=== PATIENT | male | born 1960 | race Caucasian/White ===

== ENCOUNTER → 2017-07-08 | Outpatient (CLI) | payer BC ==
[~2017-07-08] MED LIST: HYDC25 PO; METO100T44 PO; SIMV20TA2 PO
[2017-07-08 10:38] LABS: ALBUMIN 3.8 gm/dl (3.4-5.0); ALT/SGPT 77 U/L (12-78); BLOOD UREA NITROGEN 19 mg/dl (7-18); CALCIUM 8.5 mg/dl (8.5-10.1); CARBON DIOXIDE 30 mmol/L (21-32); CHOLESTEROL 236 mg/dl (0-200); CREATININE 1.19 mg/dl (0.60-1.40); GLUCOSE 97 mg/dl (70-99); POTASSIUM 3.7 mmol/L (3.5-5.1); SODIUM 138 mmol/L (136-145)
[2017-07-08 10:43] LABS: ALKALINE PHOSPHATASE 78 U/L (45-117); AST/SGOT 43 U/L (15-37); LDL CHOLESTEROL CALCULATED 158 mg/dl; TOTAL PROTEIN 7.4 gm/dl (6.4-8.2)
[2017-07-08 11:55] LABS: HEMOGLOBIN A1C 5.5 % (4.5-5.6)
== END | disposition home or self-care (01) ==
LOC: C.LAB1850 09:29
PROVIDERS: ATTEND Internal Medicine
DX: R73.01 Impaired fasting glucose (principal)

== ENCOUNTER → 2017-10-06 | Outpatient (CLI) | payer BC ==
[2017-10-06 12:44] LABS: ALBUMIN 3.9 gm/dl (3.4-5.0); BLOOD UREA NITROGEN 21 mg/dl (7-18); CALCIUM 8.7 mg/dl (8.5-10.1); CARBON DIOXIDE 32 mmol/L (21-32); CREATININE 1.19 mg/dl (0.60-1.40); GLUCOSE 107 mg/dl (70-99); POTASSIUM 3.4 mmol/L (3.5-5.1); SODIUM 138 mmol/L (136-145)
[2017-10-06 12:48] LABS: ALKALINE PHOSPHATASE 96 U/L (45-117); ALT/SGPT 57 U/L (12-78); AST/SGOT 33 U/L (15-37); CHOLESTEROL 155 mg/dl (0-200); LDL CHOLESTEROL CALCULATED 84 mg/dl; TOTAL PROTEIN 7.2 gm/dl (6.4-8.2)
== END | disposition home or self-care (01) ==
LOC: C.LABPBG 07:52
PROVIDERS: ATTEND Internal Medicine
DX: E78.5 Hyperlipidemia, unspecified (principal)

== ENCOUNTER 2019-09-13 16:32 | Inpatient (IN) ==
[2019-09-13] MEDS ORDERED: PROCHLORPERAZINE 2 ML IV ONE (17:01)
[2019-09-13] MEDS ORDERED: FAMOTIDINE 20MG IV PUSH 20 MG/5 ML SYR IV STA (17:01)
[2019-09-13] MEDS ORDERED: ACETAMINOPHEN 1,000 MG/100 ML VIAL IV STA (17:02)
[2019-09-13] MEDS ORDERED: MoRPHine SULFATE 10 MG/ML CARP/VIAL IV STA ×2 (17:02→20:08)
--- NOTE | 2019-09-13 17:13 | Emergency Department Note ---
History of Present Illness General Chief complaint: Abdominal Pain Stated complaint: ABD PAIN Time Seen by Provider: 09/13/19 16:45 Source: patient Mode of arrival: ambulatory Limitations: no limitations History of Present Illness Provider complaint: abd pain Onset (ago): minute(s) Location: abdomen Radiation: back Severity: severe Pain Consistency: + constant Maximum Pain Intensity: 10 Quality: + burning Relieved By: + none Exacerbated By: + eating Associated symptoms: + nausea/vomiting Treatments prior to arrival: none The patient is a pleasant 59-year-old gentleman with a recent past medical history of attempted biliary decompression with brush cytology with appearance of possible malignancy with atrophy of left hepatic segments who presents emergency department with abdominal pain, nausea and vomiting after initially feeling okay after his procedure ate a turkey wrap and then had nausea vomiting. Patient reports having ERCP after developing painless jaundice found to have biliary obstruction and after brief admission at [facility] was discharged with scheduled ERCP this morning. Denies fever, cough, congestion, diarrhea. Home Medications Home Medications Medication Instructions Recorded Confirmed Type potassium chloride 10 mEq 10 meq PO DAILY #90 tab 06/12/19 09/13/19 Rx tablet,extended release metoprolol succinate 100 mg 100 mg PO DAILY #30 tab 07/22/19 09/13/19 Rx tablet,extended release 24 hr atorvastatin [Lipitor] 40 mg PO DAILY 09/13/19 09/13/19 History glucos sul [id number] 1 cap PO QAM 09/13/19 09/13/19 History [Glucosamine Chondroitin] omega [id number] oil [Fish Oil] 1 cap PO DAILY 09/13/19 09/13/19 History Allergies Allergy/AdvReac Type Severity Reaction Status Date / Time No Known Allergies Allergy Unverified 09/13/19 16:35 Past Med/Surg History Medical History Carpal tunnel syndrome on both sides Dyslipidemia (Chronic) Hip pain (Chronic) Hypertension (Chronic) Impaired fasting glucose (Chronic) Surgical History [place] teeth removed Family History Father Lung cancer Denies family history of Ovarian cancer Prostate cancer Breast cancer Colorectal cancer Social History Preferred Language: Singaporean Communication Ability: Effective Visual Impairment: No Limitations Hearing Ability: Normal Injector Assembler Required: No Beliefs That Will Affect Care: None marital status: Single Current Living Situation: Alone current occupational status: employed 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 A total of ten systems were reviewed and were otherwise negative. Physical Exam Vital Signs Vital Signs - 24 hr 09/13/19 16:35 09/13/19 17:01 09/13/19 18:00 Temperature 36.5 C Temperature Source Oral Pulse Rate 142 H 75 Pulse Rhythm Regular Regular Pulse Strength Normal Respiratory Rate 20 16 Respiratory Effort / Characteristics Non-Labored Spontaneous Respiratory Depth Normal Respiratory Pattern Regular Blood Pressure 134/67 157/89 H Blood Pressure Mean 89 132 Blood Pressure Position Sitting Pulse Oximetry 96 Oxygen Delivery Method Room Air Room Air Sepsis Recent Fever Within 48 Hours No Sepsis New/Unexplained Change in Mental Status No Sepsis Action Taken by Nursing No Action Required 09/13/19 18:11 09/13/19 18:22 09/13/19 18:30 Temperature Temperature Source Pulse Rate 66 71 68 Pulse Rhythm Pulse Strength Respiratory Rate 17 15 19 Respiratory Effort / Characteristics Respiratory Depth Respiratory Pattern Blood Pressure 162/85 H Blood Pressure Mean 119 Blood Pressure Position Pulse Oximetry Oxygen Delivery Method Sepsis Recent Fever Within 48 Hours Sepsis New/Unexplained Change in Mental Status Sepsis Action Taken by Nursing 09/13/19 18:31 09/13/19 18:45 09/13/19 19:00 Temperature Temperature Source Pulse Rate 69 70 67 Pulse Rhythm Pulse Strength Respiratory Rate 18 16 18 Respiratory Effort / Characteristics Respiratory Depth Respiratory Pattern Blood Pressure 134/67 Blood Pressure Mean 101 Blood Pressure Position Pulse Oximetry Oxygen Delivery Method Sepsis Recent Fever Within 48 Hours Sepsis New/Unexplained Change in Mental Status Sepsis Action Taken by Nursing 09/13/19 19:01 09/13/19 19:31 09/13/19 19:32 Temperature Temperature Source Pulse Rate 74 74 76 Pulse Rhythm Pulse Strength Respiratory Rate 19 15 19 Respiratory Effort / Characteristics Respiratory Depth Respiratory Pattern Blood Pressure 157/78 H Blood Pressure Mean 92 Blood Pressure Position Pulse Oximetry Oxygen Delivery Method Sepsis Recent Fever Within 48 Hours Sepsis New/Unexplained Change in Mental Status Sepsis Action Taken by Nursing 09/13/19 19:45 09/13/19 20:00 09/13/19 20:01 Temperature Temperature Source Pulse Rate 77 79 82 Pulse Rhythm Pulse Strength Respiratory Rate 15 17 21 Respiratory Effort / Characteristics Respiratory Depth Respiratory Pattern Blood Pressure 144/79 H Blood Pressure Mean 94 Blood Pressure Position Pulse Oximetry Oxygen Delivery Method Sepsis Recent Fever Within 48 Hours Sepsis New/Unexplained Change in Mental Status Sepsis Action Taken by Nursing 09/13/19 20:15 09/13/19 20:30 09/13/19 20:31 Temperature Temperature Source Pulse Rate 72 76 74 Pulse Rhythm Pulse Strength Respiratory Rate 17 11 L 19 Respiratory Effort / Characteristics Respiratory Depth Respiratory Pattern Blood Pressure 150/77 H Blood Pressure Mean 108 Blood Pressure Position Pulse Oximetry Oxygen Delivery Method Sepsis Recent Fever Within 48 Hours Sepsis New/Unexplained Change in Mental Status Sepsis Action Taken by Nursing 09/13/19 20:45 09/13/19 21:00 09/13/19 21:01 Temperature Temperature Source Pulse Rate 76 68 68 Pulse Rhythm Pulse Strength Respiratory Rate 17 8 L 10 L Respiratory Effort / Characteristics Respiratory Depth Respiratory Pattern Blood Pressure 136/78 Blood Pressure Mean 97 Blood Pressure Position Pulse Oximetry Oxygen Delivery Method Sepsis Recent Fever Within 48 Hours Sepsis New/Unexplained Change in Mental Status Sepsis Action Taken by Nursing 09/13/19 21:15 Temperature Temperature Source Pulse Rate 76 Pulse Rhythm Pulse Strength Respiratory Rate 16 Respiratory Effort / Characteristics Respiratory Depth Respiratory Pattern Blood Pressure Blood Pressure Mean Blood Pressure Position Pulse Oximetry Oxygen Delivery Method Sepsis Recent Fever Within 48 Hours Sepsis New/Unexplained Change in Mental Status Sepsis Action Taken by Nursing GENERAL: Awake, alert, uncomfortable-appearing, in no distress HENT: Normocephalic, atraumatic. Oropharynx with dry mucous membranes and otherwise unremarkable. EYES: Normal conjunctiva. Sclera non-icteric. NECK: Supple. No nuchal rigidity. FROM. No JVD. RESPIRATORY: Clear to auscultation. CARDIAC: Tachycardic rate, normal rhythm. Extremities warm and well perfused. Pulses equal. ABDOMEN: Soft, non-distended. Mild upper abdominal tenderness. No rebound or guarding. No masses. RECTAL: Deferred. MUSCULOSKELETAL: Chest examination reveals no tenderness. The back is symmetrical on inspection without obvious abnormality. There is no CVA tenderness to palpation. No joint edema. LOWER EXTREMITIES: Calves are equal size bilaterally and non-tender. No edema. No discoloration. NEURO: Normal sensorium. No sensory or motor deficits noted. SKIN: No rash or jaundice noted. Course Administered Medications Lactated Ringer's (Lr) 1,000 mls @ 120 mls/hr IV .Q8H20M GABBY Stop: 10/13/19 22:03 Last Admin: 09/13/19 22:32 Dose: 120 mls/hr Documented by: [id number] Potassium Chloride (K Claudio / Wtr) 10 meq in 100 mls @ 100 mls/hr IV Q1H GABBY Stop: 09/14/19 03:14 Last Admin: 09/13/19 23:29 Dose: 100 mls/hr Documented by: [id number] Insulin Aspart (Novolog Flexpen) 0 units SC Q6 GABBY Stop: 10/13/19 22:44 Last Admin: 09/13/19 23:36 Dose: 1 units Documented by: [id number] Cosigned by: [id number] Ioversol (Optiray 320 100ml) 94 ml IV ONCE PRN PRN Reason: Interaction Checking Stop: 09/17/19 19:16 Last Admin: 09/13/19 19:18 Dose: 94 ml Documented by: [id number] Discontinued Medications Sodium Chloride (Nss 1000ml) 2,000 mls @ 999 mls/hr IV .Q2H1M GABBY Stop: 09/13/19 19:15 Last Infusion: 09/13/19 19:16 Dose: 0 mls/hr Documented by: [id number] Admin: 09/13/19 17:15 Dose: 999 mls/hr Documented by: [id number] Famotidine (Pepcid 20mg Iv Push) 20 mg in 5 mls @ 2.5 mls/min IV NOW STA Stop: 09/13/19 17:02 Last Admin: 09/13/19 17:15 Dose: 2.5 mls/min Documented by: [id number] Prochlorperazine (Compazine) 2 mls @ 1 mls/min IV ONE ONE Stop: 03/13/20 17:02 Last Admin: 09/13/19 17:15 Dose: 1 mls/min Documented by: [id number] Acetaminophen (Ofirmev) 1,000 mg in 100 mls @ 400 mls/hr IV NOW STA Stop: 09/13/19 17:16 Last Infusion: 09/13/19 20:00 Dose: 0 mls/hr Documented by: [id number] Admin: 09/13/19 19:35 Dose: 400 mls/hr Documented by: [id number] Potassium Chloride (K Claudio / Wtr) 10 meq in 100 mls @ 100 mls/hr IV Q1H GABBY Stop: 09/13/19 20:29 Last Infusion: 09/13/19 22:29 Dose: 0 mls/hr Documented by: [id number] Admin: 09/13/19 20:39 Dose: 100 mls/hr Documented by: [id number] Infusion: 09/13/19 20:34 Dose: 100 mls/hr Documented by: [id number] Admin: 09/13/19 19:34 Dose: 100 mls/hr Documented by: [id number] Piperacillin Sod/Tazobactam Sod (Zosyn) 4.5 gm in 120 mls @ 240 mls/hr IV NOW ONE Stop: 09/13/19 20:00 Last Infusion: 09/13/19 22:36 Dose: 0 mls/hr Documented by: [id number] Admin: 09/13/19 20:43 Dose: 240 mls/hr Documented by: [id number] Morphine Sulfate (Morphine Sulfate) 8 mg IV NOW STA Stop: 09/13/19 17:03 Last Admin: 09/13/19 17:15 Dose: 8 mg Documented by: [id number] Morphine Sulfate (Morphine Sulfate) 8 mg IV NOW STA Stop: 09/13/19 20:09 Last Admin: 09/13/19 20:40 Dose: 8 mg Documented by: [id number] Morphine Sulfate (Morphine Sulfate) 1 mg IV NOW STA Stop: 09/13/19 23:02 Last Admin: 09/13/19 23:26 Dose: 1 mg Documented by: [id number] Medical Decision Making Differential Diagnosis Appendicitis, testicular torsion, infections, diverticulitis, UTI, obstruction, mesenteric ischemia, aortic pathology, inflammatory bowel disease, renal colic, PUD, pancreatitis, biliary pathology, hernia, volvulus, constipation, as well as other pathologies. Medical Records Attestation: I reviewed the patient's medical records. Laboratory Data Attestation: I reviewed the patient's lab results. Result diagrams: 09/13/19 17:15 09/13/19 17:15 Lab Results 09/13/19 09/13/19 09/13/19 Range/Units 17:15 17:15 17:15 WBC 18.68 H (4.8-10.8) K/uL RBC 5.39 (4.7-6.1) M/uL Hgb 17.1 (14.0-18.0) g/dL Hct 47.2 (42-52) % MCV 87.6 (80-100) fL MCH 31.7 (25-34) pg MCHC 36.2 H (32-36) g/dL RDW Std Deviation 45.7 (36.4-46.3) fL RDW Coeff of Celestino 14.2 (11.5-14.5) % Plt Count 266 (130-400) K/uL Immature Gran % (Auto) 0.3 % Neut % (Auto) 80.8 % Lymph % (Auto) 7.4 % Gem % (Auto) 11.2 % Eos % (Auto) 0.1 % Baso % (Auto) 0.2 % Immature Gran # (Auto) 0.05 H (0.00-0.02) K/uL Neut # (Auto) 15.10 H (1.4-6.5) K/uL Lymph # (Auto) 1.38 (1.2-3.4) K/uL Gem # (Auto) 2.10 H (0.11-0.59) K/uL Eos # (Auto) 0.01 (0-0.5) K/uL Baso # (Auto) 0.04 (0-0.2) K/uL PT 11.5 (9.0-12.0) Seconds INR 1.1 (0.9-1.1) APTT 25.8 (21.0-31.0) Seconds PTT Ratio 0.9 Sodium 133 L (136-145) mmol/L Potassium 2.2 L* (3.5-5.1) mmol/L Chloride 92 L (98-107) mmol/L Carbon Dioxide 27 (21-32) mmol/L Anion Gap 15.0 H (3-11) BUN 20 H (7-18) mg/dl Creatinine 1.45 H (0.6-1.4) mg/dl Est Cr Clr Drug Dosing 55.5 ml/min Est GFR ( Amer) 60.2 Est GFR (Non-Af Amer) 52.0 BUN/Creatinine Ratio 14.1 (10-20) Glucose 187 H (70-99) mg/dl Lactate (0.4-2.0) mmol/L Calcium 9.8 (8.5-10.1) mg/dl Phosphorus 2.1 L (2.5-4.9) mg/dl Magnesium 2.4 (1.8-2.4) mg/dl Total Bilirubin 8.2 H (0.2-1) mg/dl Direct Bilirubin 6.0 H (0-0.2) mg/dl AST 614 H (15-37) U/L ALT 755 H (12-78) U/L Alkaline Phosphatase 611 H (45-117) U/L Lactate Dehydrogenase (87-241) U/L Troponin I 0.023 (0-0.045) ng/ml Total Protein 7.9 (6.4-8.2) gm/dl Albumin 3.5 (3.4-5.0) gm/dl Globulin 4.4 H (2.5-4.0) gm/dl Albumin/Globulin Ratio 0.8 L (0.9-2) Lipase 98965 H (73-393) U/L TSH 1.430 (0.300-4.500) uIu/ml 09/13/19 09/13/19 09/13/19 Range/Units 17:15 18:47 20:36 WBC (4.8-10.8) K/uL RBC (4.7-6.1) M/uL Hgb (14.0-18.0) g/dL Hct (42-52) % MCV (80-100) fL MCH (25-34) pg MCHC (32-36) g/dL RDW Std Deviation (36.4-46.3) fL RDW Coeff of Celestino (11.5-14.5) % Plt Count (130-400) K/uL Immature Gran % (Auto) % Neut % (Auto) % Lymph % (Auto) % Gem % (Auto) % Eos % (Auto) % Baso % (Auto) % Immature Gran # (Auto) (0.00-0.02) K/uL Neut # (Auto) (1.4-6.5) K/uL Lymph # (Auto) (1.2-3.4) K/uL Gem # (Auto) (0.11-0.59) K/uL Eos # (Auto) (0-0.5) K/uL Baso # (Auto) (0-0.2) K/uL PT (9.0-12.0) Seconds INR (0.9-1.1) APTT (21.0-31.0) Seconds PTT Ratio Sodium (136-145) mmol/L Potassium (3.5-5.1) mmol/L Chloride (98-107) mmol/L Carbon Dioxide (21-32) mmol/L Anion Gap (3-11) BUN (7-18) mg/dl Creatinine (0.6-1.4) mg/dl Est Cr Clr Drug Dosing ml/min Est GFR ( Amer) Est GFR (Non-Af Amer) BUN/Creatinine Ratio (10-20) Glucose (70-99) mg/dl Lactate 2.7 H* Cancelled (0.4-2.0) mmol/L Calcium (8.5-10.1) mg/dl Phosphorus (2.5-4.9) mg/dl Magnesium (1.8-2.4) mg/dl Total Bilirubin (0.2-1) mg/dl Direct Bilirubin (0-0.2) mg/dl AST (15-37) U/L ALT (12-78) U/L Alkaline Phosphatase (45-117) U/L Lactate Dehydrogenase < 6 L (87-241) U/L Troponin I (0-0.045) ng/ml Total Protein (6.4-8.2) gm/dl Albumin (3.4-5.0) gm/dl Globulin (2.5-4.0) gm/dl Albumin/Globulin Ratio (0.9-2) Lipase (73-393) U/L TSH (0.300-4.500) uIu/ml Imaging Data Attestation: I personally reviewed and interpreted this imaging study as follows: Radiologist's Impression: XR chest 1V portable CLINICAL HISTORY: Atypical chest pain COMPARISON STUDY: No previous studies for comparison. FINDINGS: The heart is borderline enlarged. There is no failure. There is no focal pulmonary consolidation. There are no pleural effusions. Degenerative changes are present within the shoulders.[ IMPRESSION: No active disease in the chest. ACT 112: Negative or not required by law. --- CT abd pelvis IV con only CLINICAL HISTORY: upper abd pain, s/p biliary stent this am COMPARISON STUDY: 09/09/2019 TECHNIQUE: The patient was scanned in a dynamic helical fashion during intravenous administration of 94 cc Optiray 320 A dose lowering technique was utilized adhering to the principles of ALARA. CT DOSE: 292.00 mGy.cm FINDINGS: Lower chest: There are dependent airspace opacities, statistically atelectatic. Liver: There is intrahepatic biliary ductal dilatation. There is intraductal contrast within the left lobe. There are 2 biliary enteric stent is present. There is a 27 mm right lobe hepatic cyst. There is a small amount of pneumobilia, likely secondary to the stents. The previously described enhancing soft tissue at the level of the liver hilum extending along the common hepatic duct and cystic duct, is more difficult to visualize on the current study with the indwelling biliary enteric stent Gallbladder: Gallbladder calcification versus focus of wall calcification. Spleen: Normal in size and attenuation. Pancreas: There is peripancreatic edema, indicative of acute interstitial pancreatitis. There is no evidence of pancreatic necrosis. Adrenal glands: Unremarkable. Kidneys: There is a 33 mm right renal parapelvic cyst. There is no hydronephrosis. Bowel: There are no transition zones indicate bowel obstruction. There is no evidence of acute appendicitis. There is no evidence of acute diverticulitis. Peritoneum: There is a small amount of fluid tracking into the right paracolic gutter and posterior peritoneal space on the right. There is no free intraperitoneal air. Vasculature: The abdominal aorta is normal in course and caliber. Adenopathy: None. Pelvic viscera: The bladder, and pelvic viscera are unremarkable. Skeletal structures: No destructive osseous lesions are seen. IMPRESSION: 1. Interval placement of 2 biliary enteric stents 2. Persistent but perhaps slightly diminished intrahepatic biliary ductal dilatation 3. Interval development of acute interstitial pancreatitis. No evidence of pancreatic necrosis 4. Cholelithiasis versus gallbladder wall calcification. 5. No evidence of bowel obstruction. No evidence of free air. ACT 112: Negative or not required by law. Electronically signed by: Guillermo Juan M.D. 09/13/2019 7:35 PM ECG Data Attestation: I personally reviewed and interpreted this ECG as follows: Indication: abdominal pain Rate (beats per minute): 70 Rhythm: normal sinus Findings: + other (TWA, Right axis) and + RBBB (incomplete); no acute ischemic change Blood Pressure Blood Pressure Findings: Elevated blood pressure Blood Pressure Disposition: further management by hospitalist KORY Garces The patient is a pleasant 59-year-old gentleman with a recent past medical history of painless jaundice status post ERCP (with Dr. Mascorro and [facility]) this morning with attempted biliary decompression with brush cytology with appearance of possible malignancy with atrophy of left hepatic segments who presents emergency department with abdominal pain, nausea and vomiting after initially feeling okay after his procedure, ate a turkey wrap and then had nausea vomiting. Denies fever, cough, congestion, diarrhea. On arrival patient is uncomfortable, afebrile with heart rate in the 140s and vital signs otherwise stable. On Exam the patient has mild to moderate upper abdominal tenderness without guarding or rebound. EKG without overt acute ischemia. Chest x-ray negative for acute process. WBC, 18.6 in the setting of the patient's nausea and vomiting upon arrival. H/H and platelets within normal limits. Chemistry without acidosis. Potassium 2.2 with repletion initiated. Creatinine 1.45. Total bilirubin 8.2 decreased from 10.12 days ago. Direct bilirubin 6.0 in the setting of known painless jaundice. AST and ALT 614 and 755 slightly increased from recent. LDH undetectable. Troponin 0.023. lipase 28K. UA without convincing evidence of infection. CT abdomen pelvis with findings consistent with acute interstitial pancreatitis. The case was discussed with [facility] GI on-call, Dr. Rocha, and agreed with plan for admission however at this time do not believe needed emergent transfer. Agreed with management as was initiated with blood cultures and empiric antibiotics and continued hydration. 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 Plan for admission here was reviewed the patient and he and his were agreeable. Case was discussed with Dr. Gaona, [facility] hospitalist, who evaluate the patient for admission. Impression & Plan Acute pancreatitis, Acute hypokalemia, Upper abdominal pain, S/P ERCP, Acute renal insufficiency Critical Care Time Critical Care Time: Yes Total Critical Care Time: 35 I have personally spent greater than 35 minutes of critical care time in the direct management of this patient. This includes bedside care, interpretation of diagnostic studies, and testing, discussion with consultants, patient, and family members, and other required patient management activities. This 35 minutes is in excess of all separately billable procedures. Discharge Plan Visit Data *Final* Discharge Date/Time: 09/13/19 21:51 Chief Complaint: Abdominal Pain Stated Complaint: ABD PAIN ED Provider: Franki Oconnor Discharge Problem: Acute pancreatitis, Acute hypokalemia, Upper abdominal pain, S/P ERCP, Acute renal insufficiency Patient Disposition: Admitted As Inpatient Discharge Instructions Interventions: ED Discharge Assessment Last Done: 09/13/19 21:51 Discharge Problem: Acute pancreatitis Qualifiers: Pancreatitis type: other Acute pancreatitis complication: unspecified Qualified Code(s): K85.80 - Other acute pancreatitis without necrosis or infection
[2019-09-13] MEDS ORDERED: SODIUM CHLORIDE 0.9% 1000ML 2,000 ML IV SCH (17:15)
--- NOTE | 2019-09-13 17:37 | XRay Report ---
XR chest 1V portable CLINICAL HISTORY: Atypical chest pain COMPARISON STUDY: No previous studies for comparison. FINDINGS: The heart is borderline enlarged. There is no failure. There is no focal pulmonary consolid ation. There are no pleural effusions. Degenerative changes are present within the shoulders.[ IMPRESSION: No active disease in the chest. ACT 112: Negative or not required by law. Electronically signed by: Guillermo Juan M.D. 09/13/2019 5:35 PM
[2019-09-13 17:38] LABS: Basophils # (auto) 0.04 K/uL (0-0.2); Basophils % (auto) 0.2 %; Eosinophils # (auto) 0.01 K/uL (0-0.5); Eosinophils % (auto) 0.1 %; Hematocrit (blood only) 47.2 % (42-52); Hemoglobin 17.1 g/dL (14.0-18.0); Immature Granulocytes # (auto) 0.05 K/uL (0.00-0.02); Immature Granulocytes % (auto) 0.3 %; Lymphocytes # (auto) 1.38 K/uL (1.2-3.4); Lymphocytes % (auto) 7.4 %; Mean Corpuscular Hemoglobin 31.7 pg (25-34); Mean Corpuscular Hgb Conc 36.2 g/dL (32-36); Mean Corpuscular Volume 87.6 fL (80-100); Monocytes % (auto) 11.2 %; Neutrophils % (auto) 80.8 %; Platelet Count 266 K/uL (130-400); RDW Coefficient of Variation 14.2 % (11.5-14.5); RDW Standard Deviation 45.7 fL (36.4-46.3); Red Blood Count 5.39 M/uL (4.7-6.1); White Blood Count 18.68 K/uL (4.8-10.8)
[2019-09-13 17:49] LABS: INR 1.1 (0.9-1.1); Partial Thromboplastin Ratio 0.9; Partial Thromboplastin Time 25.8 Seconds (21.0-31.0); Prothrombin Time 11.5 Seconds (9.0-12.0)
[2019-09-13 18:29] LABS: Albumin Globulin Ratio 0.8 (0.9-2); Albumin Level 3.5 gm/dl (3.4-5.0); BUN Creatinine Ratio 14.1 (10-20); Bilirubin,Total 8.2 mg/dl (0.2-1); Calcium 9.8 mg/dl (8.5-10.1); Creatinine Clr Calc Pharmacy 55.5 ml/min; Est GFR (African American) 60.2; Globulin 4.4 gm/dl (2.5-4.0); Magnesium 2.4 mg/dl (1.8-2.4); Phosphorus 2.1 mg/dl (2.5-4.9); Potassium 2.2 mmol/L (3.5-5.1); Thyroid Stimulating Hormone 1.43 uIu/ml (0.300-4.500); Total Protein 7.9 gm/dl (6.4-8.2); Troponin I 0.023 ng/ml (0-0.045)
[2019-09-13] MEDS ORDERED: IOVERSOL 100ml IV PRN (19:17)
[2019-09-13] MEDS ORDERED: PIPERACILL/TAZOBAC CONSULT ACTIVE PRN ×2 (19:31→22:04)
[2019-09-13] MEDS ORDERED: PIPERACILLIN/TAZOBACTAM 4.5 GM/120 ML BAG IV ONE (19:31)
[2019-09-13] MEDS: POTASSIUM CHLORIDE / WTR 10 MEQ/100 ML PLCT IV SCH ×3 (19:34→23:29)
--- NOTE | 2019-09-13 19:36 | CT Scan Report ---
CT abd pelvis IV con only CLINICAL HISTORY: upper abd pain, s/p biliary stent this am COMPARISON STUDY: 09/09/2019 TECHNIQUE: The patient was scanned in a dynamic helical fashion during intravenous administration of 94 cc Optiray 320 A dose lowering technique was utilized adhering to the principles of ALARA. CT DOSE: 292.00 mGy.cm FINDINGS: Lower chest: There are dependent airspace opacities, statistically atelectatic. Liver: There is intrahepatic biliary ductal dilatation. There is intraductal contrast within the left lobe. There are 2 biliary enteric stent is present. There is a 27 mm right lobe hepatic cyst. There is a small amount of pneumobilia, likely secondary to the stents. The previously described enhancing soft tissue at the level of the liver hilum extending along the common hepatic duct and cystic duct, is more difficult to visualize on the current study with the indwelling biliary enteric stent Gallbladder: Gallbladder calcification versus focus of wall calcification. Spleen: Normal in size and attenuation. Pancreas: There is peripancreatic edema, indicative of acute interstitial pancreatitis. There is no e vidence of pancreatic necrosis. Adrenal glands: Unremarkable. Kidneys: There is a 33 mm right renal parapelvic cyst. There is no hydronephrosis. Bowel: There are no transition zones indicate bowel obstruction. There is no evidence of acute append icitis. There is no evidence of acute diverticulitis. Peritoneum: There is a small amount of fluid tracking into the right paracolic gutter and posterior p eritoneal space on the right. There is no free intraperitoneal air. Vasculature: The abdominal aorta is normal in course and caliber. Adenopathy: None. Pelvic viscera: The bladder, and pelvic viscera are unremarkable. Skeletal structures: No destructive osseous lesions are seen. IMPRESSION: 1. Interval placement of 2 biliary enteric stents 2. Persistent but perhaps slightly diminished intrahepatic biliary ductal dilatation 3. Interval development of acute interstitial pancreatitis. No evidence of pancreatic necrosis 4. Cholelithiasis versus gallbladder wall calcification. 5. No evidence of bowel obstruction. No evidence of free air. ACT 112: Negative or not required by law. Electronically signed by: Guillermo Juan M.D. 09/13/2019 7:35 PM
--- NOTE | 2019-09-13 21:28 | History & Physical Report ---
Date of Service September 13, 2019 Assessment & Plan (1) Pancreatitis: Likely related to stent placement today States jaundice slightly improved CTAP noted stents in place but now with acute pancreatitis LFTs increased, monitor Lipase elevated, no indication to recheck if pt is improving clinically IVF, NPO Zosyn started in ED due to stents and elevated WBC and lactic acid, will continue for now Monitor Blood cx pending Concern for cholangiocarcinoma on prior imaging, path taken today (2) BRADLEY (acute kidney injury): Monitor with IVF (3) Hypokalemia: Recent decreased PO intake Replaced in ED, monitor (4) Impaired fasting glucose: Denies knowledge of this BS 181 on admission Monitor SSI PRN A1c pending (5) Hypertension: Holding home meds Monitor (6) Dyslipidemia: Holding home meds (7) DVT prophylaxis: SCDs History of Present Illness Primary Care Provider: Rickie Alejo MD 59 y/o M c/o abd pain. Pt states he has been having abd pain over the last week. He looked into these sx and thought it was a "gallbladder attack". He has no hx of this prior. He noted that he was jaundiced on Monday. He was seen by PCP for this and CTAP and US were done on 09/08 and noted as suspicious for cholangiocarcinoma. He was sent to [facility] [place] today for ERCP. He had 2 stents placed. He was feeling improved initially and d/c'd to home. He was told he could eat and had a chicken wrap prior to coming back to OR that had dressing on it. He started to have worsening abd pain shortly after. He also developed n/v. Pain is epigastric and worse than the pain he was having prior. He does feel that his jaundice is very slightly improved. Pt denies fever, SOB, chest pain, c/d, LE pain or swelling. Pt states his appetite has been low for about 2 weeks. No prior hx of similar sx. Pt does feel mildly improved s/p IVF and zosyn. Allergies Allergy/AdvReac Type Severity Reaction Status Date / Time No Known Allergies Allergy Unverified 09/13/19 16:35 Home Medications Home Medications Medication Instructions Recorded Confirmed Type potassium chloride 10 mEq 10 meq PO DAILY #90 tab 06/12/19 09/13/19 Rx tablet,extended release metoprolol succinate 100 mg 100 mg PO DAILY #30 tab 07/22/19 09/13/19 Rx tablet,extended release 24 hr atorvastatin [Lipitor] 40 mg PO DAILY 09/13/19 09/13/19 History glucos sul [id number] 1 cap PO QAM 09/13/19 09/13/19 History [Glucosamine Chondroitin] omega [id number]-[id number]-fish oil [Fish Oil] 1 cap PO DAILY 09/13/19 09/13/19 History Past Med/Surg History Medical History Carpal tunnel syndrome on both sides Dyslipidemia (Chronic) Hip pain (Chronic) Hypertension (Chronic) Impaired fasting glucose (Chronic) Lymphoma Surgical History [place] teeth removed Family History Father Lung cancer Denies family history of Ovarian cancer Prostate cancer Breast cancer Colorectal cancer Social History (Updated 09/13/19 @ 21:33 by Mayra Prescott DO) Preferred Language: Romansh Communication Ability: Effective Visual Impairment: No Limitations Hearing Ability: Normal Linoleum Mechanic Required: No Beliefs That Will Affect Care: None marital status: Single Current Living Situation: Alone current occupational status: employed 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 Feels Safe at Home: Yes Smoking Status: Never smoker Hx Alcohol Use: Yes Alcohol type: beer Alcohol Intake Frequency Comment: 1 beer every other day, none x2-3 weeks Hx Substance Use: No Childhood Exposure to Second-Hand Smoke: Yes Diet Comment: regular caffeine: Yes (very little) during the past year weight has: remained stable Dental Care, Regularly: Yes Physical Activity Frequency: Daily Seatbelt Use: always Sunscreen Use: No Review of Systems Review of Systems: Pertinent positives and negatives reviewed in HPI--all others negative Physical Exam Constitutional: WD/WN, vitals as above Eyes: reactive pupils sclera yellow Neck: normal visual inspection and trachea midline Respiratory: normal respiratory effort, lungs clear to auscultation Cardiovascular: Rate/Rhythm: regular rate and regular rhythm Gastrointestinal (Abdomen): Inspection/Auscultation: + abdomen distended Percussion/Palpation: + abdomen tender (epigastric) and abdomen soft Musculoskeletal: Head/Neck/Chest: normocephalic and head atraumatic negative for edema, peripheral pulses intact Skin: + jaundice (eyes yellowed, facial yellowing, mild yellowing of extremities) Neurologic: awake; not confused Speech / Cognition: normal speech Psychiatric: A+Ox3, euthymic affect Results & Data Vital Signs (Past 12 Hours) Vital Signs Temp Pulse Resp BP Pulse Ox 09/13/19 19:45 77 15 09/13/19 19:32 76 19 157/78 H 09/13/19 19:31 74 15 09/13/19 19:01 74 19 09/13/19 19:00 67 18 134/67 09/13/19 18:45 70 16 09/13/19 18:31 69 18 09/13/19 18:30 68 19 162/85 H 09/13/19 18:22 71 15 09/13/19 18:11 66 17 09/13/19 18:00 75 16 157/89 H 09/13/19 16:35 36.5 C 142 H 20 134/67 96 Diagnostic Findings CTAP: stents in place, decreased biliary duct dilation, acute pancreatitis Code Status & VTE Plan Code Status Full code VTE Prophylaxis Plan VTE Prophylaxis will be ordered: Yes PG Care Time/CCT Total # of Minutes Spent Total Time Spent with Patient: Total time spent is greater than 50% in coordination of care (as documented) at patient's floor/unit and/or counseling patient: Coding Level of Care Code 61573 Initial Inpt Care Lvl 3 Diagnoses Pancreatitis K85.90 BRADLEY (acute kidney injury) N17.9 Hypokalemia E87.6 Impaired fasting glucose R73.01 Hypertension I10 Hypertension type: essential hypertension Dyslipidemia E78.5 DVT prophylaxis Z29.9 (1) Hypertension Hypertension type: essential hypertension Qualified Code(s): I10 - Essential (primary) hypertension
[2019-09-13] MEDS ORDERED: GLUCOSE 10 TABS/TUBE PO PRN (22:04)
[2019-09-13] MEDS ORDERED: ONDANSETRON INJ 2 MG/ML 2 ML VIAL IV PRN (22:04)
[2019-09-13] MEDS ORDERED: GLUCOSE 40% GEL 15 GM TUBE PO PRN (22:04)
[2019-09-13] MEDS ORDERED: CARBOHYDRATES FOR HYPOGLYCEMIA PO PRN (22:04)
[2019-09-13] MEDS ORDERED: MAGNESIUM HYDROXIDE SUSP 30 ML UDC PO PRN (22:04)
[2019-09-13] MEDS ORDERED: GLUCAGON FOR INJ 1 MG VIAL SQ PRN (22:04)
[2019-09-13] MEDS ORDERED: DEXTROSE 50% 50 ML SYRINGE IV PRN (22:04)
[2019-09-13] MEDS: LACTATED RINGER'S 1,000 ML IV SCH (22:32)
[2019-09-13] MEDS ORDERED: MoRPHine SULFATE 2 MG/ML CARP IV STA (23:01)
[2019-09-13] MEDS: INSULIN ASPART 100 UNITS/ML 3 ML PEN SC SCH (23:36)
[2019-09-14 00:25] LABS: Appearance Urine Clear (Clear); Bacteria Urine Automated Negative (Negative); Blood Urine Negative (Negative); Cast Urine Automated 0 /lpf (0-5); Color Urine Dark Yellow; Glucose Urine UA Negative (Negative); Ketones Urine Negative (Negative); Leukocyte Esterase Urine Negative (Negative); Nitrite Urine Negative (Negative); Protein Urine 1+ (Negative); RBC Urine Automated 0-4 /hpf (0-4); Specific Gravity Urine > 1.045 (1.000-1.030); Urobilinogen Urine Negative (Negative)
[2019-09-14 00:28] LABS: Bilirubin Urine 2+ (Negative)
[2019-09-14 00:29] LABS: Ictotest Urine Positive (Negative)
[2019-09-14] MEDS: POTASSIUM CHLORIDE / WTR 10 MEQ/100 ML PLCT IV SCH ×5 (00:38→12:23)
[2019-09-14] MEDS: ACETAMINOPHEN 325 MG TAB PO PRN ×2 (02:18→06:22)
[2019-09-14] MEDS: PIPERACILLIN/TAZOBACTAM 3.375 GM in DEXTROSE 5% 100 ML IV SCH ×3 (03:41→18:18)
[2019-09-14 05:47] LABS: Basophils # (auto) 0.02 K/uL (0-0.2); Basophils % (auto) 0.1 %; Hematocrit (blood only) 45.3 % (42-52); Hemoglobin 15.9 g/dL (14.0-18.0); Immature Granulocytes # (auto) 0.05 K/uL (0.00-0.02); Immature Granulocytes % (auto) 0.3 %; Lymphocytes # (auto) 0.49 K/uL (1.2-3.4); Lymphocytes % (auto) 3.2 %; Mean Corpuscular Hemoglobin 30.8 pg (25-34); Mean Corpuscular Hgb Conc 35.1 g/dL (32-36); Mean Corpuscular Volume 87.8 fL (80-100); Monocytes # (auto) 1.27 K/uL (0.11-0.59); Monocytes % (auto) 8.2 %; Neutrophils # (auto) 13.72 K/uL (1.4-6.5); Neutrophils % (auto) 88.2 %; Platelet Count 232 K/uL (130-400); RDW Coefficient of Variation 14.6 % (11.5-14.5); RDW Standard Deviation 46.9 fL (36.4-46.3); Red Blood Count 5.16 M/uL (4.7-6.1); White Blood Count 15.55 K/uL (4.8-10.8)
[2019-09-14] MEDS: INSULIN ASPART 100 UNITS/ML 3 ML PEN SC SCH ×3 (06:16→18:54)
[2019-09-14 06:24] LABS: Estimated Average Glucose 117 mg/dl; Hemoglobin A1C 5.7 % (4.5-5.6)
[2019-09-14 06:31] LABS: Albumin Level 2.8 gm/dl (3.4-5.0); BUN Creatinine Ratio 13.7 (10-20); Bilirubin,Total 11.3 mg/dl (0.2-1); Calcium 8.1 mg/dl (8.5-10.1); Creatinine Clr Calc Pharmacy 73.2 ml/min; Est GFR (African American) 84.1; Est GFR (Non-African American) 72.6; Magnesium 2.2 mg/dl (1.8-2.4); Phosphorus 2.6 mg/dl (2.5-4.9); Potassium 3.3 mmol/L (3.5-5.1); Total Protein 6.3 gm/dl (6.4-8.2)
[2019-09-14 06:33] LABS: Bilirubin Direct 9.6 mg/dl (0-0.2)
[2019-09-14] MEDS: LACTATED RINGER'S 1,000 ML IV SCH ×4 (06:52→19:52)
[2019-09-14] MEDS: MoRPHine SULFATE 2 MG/ML CARP IV PRN ×2 (07:31→10:24)
[2019-09-14] MEDS ORDERED: HydrALAZINE HCL 20 MG/ML VIAL IV PRN (09:06)
[2019-09-14] MEDS: MoRPHine SULFATE 4 MG/ML 1 ML CARP\\VIAL IV PRN ×4 (11:15→22:17)
--- NOTE | 2019-09-14 11:47 | Electrocardiogram Report ---
Test Reason : Blood Pressure : / mmHG Vent. Rate : 070 BPM Atrial Rate : 070 BPM P-R Int : 186 ms QRS Dur : 096 ms QT Int : 436 ms P-R-T Axes : 059 098 026 degrees QTc Int : 470 ms Normal sinus rhythm Rightward axis Incomplete right bundle branch block T wave abnormality, consider inferior ischemia Abnormal ECG No previous ECGs available Confirmed by Juan Carlos Ravi ([id number]) on 09/14/2019 11:47:19 AM Referred By: REFERRED SELF Confirmed By:Juan Carlos Ravi
--- NOTE | 2019-09-14 13:09 | Hospitalist Progress Note ---
Date of Service September 14, 2019 Assessment & Plan (1) Pancreatitis: * Secondary to ERCP with stent placement AM 09[place]12 [place] [facility] with brushing of bile duct that looks suspicious for cholangiocarcinoma. Pathology pending * CT A/P with evidence of acute pancreatitis. Lipase 28,273. LDH <7. * NPO except ice chips/sips * Continue IV Zosyn -- covered for stent as patient d/c from [facility] on Augment[place] * Blood cultures pending * Lactic acid elevated at 2.7, repeat 1.6 * Increased LR from 120cc/hr to 200cc/hr * Repeat lipase 13,960 * GI Consult -- appreciate input. CA19-9 and CEA pending * Increased morphine to 4mg Q3h prn (previously 2mg). D/c tylenol * Monitor labs in AM * Trop 0.023, 0.025, will repeat third trop (2) Jaundice: * See above -- started ~2 weeks ago, jaundice/darkened urine/light stools/pruritis. Saw PCP who refferred to [facility] for ERCP with stenting x 2. Concerns for cholangiocarcinoma * Tbili on admission 8.2 -- now 11.3 with direct bilirubin 9.6. (Patient with tbili 10.1 on 09/10 prior to stent). LDH <6.0 * AST 556 from 614 * ALT 593 from 755 * Alk phos 456 from 611 (3) BRADLEY (acute kidney injury): * Cr 1.45 on admission * Improved to 1.10 on AM labs * Increased IVF as above * Continue to monitor (4) Hypokalemia: * Secondary to recent decreased PO intake -- 2.2 on admission and given replacement * 3.3 on AM labs -- ordered additional 2 K riders * Continue to monitor AM labs (5) Impaired fasting glucose: * Denies knowledge of this. A1c 55. in 2018. Repeat at 5.7 -- counseled on pre-DM and follow up with PCP outpatient * SSI prn * Continue to monitor (6) Hypertension: * Holding home meds as patient NPO -- patient on metoprolol succinate 100mg daily as outpatient * BP elevated at 157/102 -- secondary to pain * Hydralazine prn SBP >180, DBP >100 (7) Dyslipidemia: * Holding home meds as patient NPO -- patient on atorvastatin 40mg daily outpatient (8) Pre-diabetes: * See above under impaired fasting glucose (9) DVT prophylaxis: * SCDs Dispo: likely inpatient 1-2 days -- advance to low fat diet once lipase resolving per GI Admission and Anticipated Discharge Date Admission Date: September 13, 2019 Supervising Physician Co-Signing Physician Notes PA Supervision Note: I did not personally see or examine the patient today, but I verified all phan points of SANTI Finney's assessment and plan with the following exceptions/additions: None Subjective Patient evaluated at bedside with sister's present. Patient states he was seen in the office with Dr. Alejo for concerns of jaundice. He states at that time he was also extremely itchy (which has since resolved). He then went to [facility] on [place]12 for ERCP and stent x 2 and states he was feeling better at time of discharge and later developed severe epigastric pain. Patient states he had been receiving tyelnol without relief and pain brought from 8/10 to 7/10 sharp stabbing epigastric pain with radiation to back with administration of morphine thirty minutes ago. Discussed that patient should not be afraid to ask for something for pain and that I will increase the morphine dosage to see if that helps his pain. Discussed consulting [facility] GI while he is here, but that we will increase his fluids and see if that helps to resolve lipase/pancreatitis quicker, as they were previously running at 120cc/hr. Patient denies fever/chills, chest pain. Pain in epigastric region when taking a deep breath. Still with RUQ pain as well, however epigastric discomfort worse at this time. Review of Systems Review of Systems: All systems reviewed & are unremarkable except as noted in HPI & below Physical Exam Physical Exam: Constitutional WD/WN, vitals as above. Uncomfortable appearing Eyes Pupils equal, reactive. Icteric sclerae Neck normal visual inspection and trachea midline Respiratory normal respiratory effort, lungs clear to auscultation Cardiovascular Rate/Rhythm: regular rate and regular rhythm. No r/m/g. No JVD, No edema. 2+ pulses dp,pt bilaterally. Normal cap refill Gastrointestinal (Abdomen) Inspection/Auscultation: + abdomen distended Percussion/Palpation: + abdomen tender (epigastric > RUQ, although diffusely tender) and abdomen soft Musculoskeletal Head/Neck/Chest: normocephalic and head atraumatic. 5/5 strength throughout Skin + jaundice ( facial yellowing, mild yellowing of extremities) Neurologic awake; not confused, moves all extremities Speech / Cognition: normal speech Psychiatric A+Ox3, euthymic affect Results & Data ([facility]) Vital Signs (Past 12 Hours) Vital Signs Temp Pulse Resp BP Pulse Ox 09/14/19 12:14 167/95 H 09/14/19 07:08 36.9 C 77 16 161/91 H 100 Laboratory Results 09/14/19 09/14/19 09/14/19 Range/Units 13:40 13:40 12:20 WBC (4.8-10.8) K/uL RBC (4.7-6.1) M/uL Hgb (14.0-18.0) g/dL Hct (42-52) % MCV (80-100) fL MCH (25-34) pg MCHC (32-36) g/dL RDW Std Deviation (36.4-46.3) fL RDW Coeff of Celestino (11.5-14.5) % Plt Count (130-400) K/uL Immature Gran % (Auto) % Neut % (Auto) % Lymph % (Auto) % Ripley % (Auto) % Eos % (Auto) % Baso % (Auto) % Immature Gran # (Auto) (0.00-0.02) K/uL Neut # (Auto) (1.4-6.5) K/uL Lymph # (Auto) (1.2-3.4) K/uL Ripley # (Auto) (0.11-0.59) K/uL Eos # (Auto) (0-0.5) K/uL Baso # (Auto) (0-0.2) K/uL PT (9.0-12.0) Seconds INR (0.9-1.1) APTT (21.0-31.0) Seconds PTT Ratio Sodium (136-145) mmol/L Potassium (3.5-5.1) mmol/L Chloride (98-107) mmol/L Carbon Dioxide (21-32) mmol/L Anion Gap (3-11) BUN (7-18) mg/dl Creatinine (0.6-1.4) mg/dl Est Cr Clr Drug Dosing ml/min Est GFR ( Amer) Est GFR (Non-Af Amer) BUN/Creatinine Ratio (10-20) Glucose (70-99) mg/dl POC Glucose 125 H (70-99) mg/dl Estimat Average Glucose mg/dl Hemoglobin A1c (4.5-5.6) % Lactate (0.4-2.0) mmol/L Calcium (8.5-10.1) mg/dl Phosphorus (2.5-4.9) mg/dl Magnesium (1.8-2.4) mg/dl Total Bilirubin (0.2-1) mg/dl Direct Bilirubin (0-0.2) mg/dl AST (15-37) U/L ALT (12-78) U/L Alkaline Phosphatase (45-117) U/L Lactate Dehydrogenase (87-241) U/L Troponin I (0-0.045) ng/ml Total Protein (6.4-8.2) gm/dl Albumin (3.4-5.0) gm/dl Globulin (2.5-4.0) gm/dl Albumin/Globulin Ratio (0.9-2) Lipase (73-393) U/L Carcinoembryonic Ag 0.6 (0-2.5) ng/ml CA 19-9 Antigen Pending TSH (0.300-4.500) uIu/ml Urine Color Urine Appearance (Clear) Urine pH (4.5-7.5) Ur Specific Cushing (1.000-1.030) Urine Protein (Negative) Urine Glucose (UA) (Negative) Urine Ketones (Negative) Urine Blood (Negative) Urine Nitrite (Negative) Urine Bilirubin (Negative) Urine Urobilinogen (Negative) Ur Leukocyte Esterase (Negative) Urine WBC (Auto) (0-5) /hpf Urine RBC (Auto) (0-4) /hpf U Hyaline Cast (Auto) (0-5) /lpf U Epithel Cells (Auto) (0-5) /lpf Urine Bacteria (Auto) (Negative) Ur Renal Epithelial Cell Hepatitis C Ab Screen (Neg) 09/14/19 09/14/19 09/14/19 Range/Units 09:07 09:07 09:07 WBC (4.8-10.8) K/uL RBC (4.7-6.1) M/uL Hgb (14.0-18.0) g/dL Hct (42-52) % MCV (80-100) fL MCH (25-34) pg MCHC (32-36) g/dL RDW Std Deviation (36.4-46.3) fL RDW Coeff of Celestino (11.5-14.5) % Plt Count (130-400) K/uL Immature Gran % (Auto) % Neut % (Auto) % Lymph % (Auto) % Ripley % (Auto) % Eos % (Auto) % Baso % (Auto) % Immature Gran # (Auto) (0.00-0.02) K/uL Neut # (Auto) (1.4-6.5) K/uL Lymph # (Auto) (1.2-3.4) K/uL Ripley # (Auto) (0.11-0.59) K/uL Eos # (Auto) (0-0.5) K/uL Baso # (Auto) (0-0.2) K/uL PT (9.0-12.0) Seconds INR (0.9-1.1) APTT (21.0-31.0) Seconds PTT Ratio Sodium (136-145) mmol/L Potassium (3.5-5.1) mmol/L Chloride (98-107) mmol/L Carbon Dioxide (21-32) mmol/L Anion Gap (3-11) BUN (7-18) mg/dl Creatinine (0.6-1.4) mg/dl Est Cr Clr Drug Dosing ml/min Est GFR ( Amer) Est GFR (Non-Af Amer) BUN/Creatinine Ratio (10-20) Glucose (70-99) mg/dl POC Glucose (70-99) mg/dl Estimat Average Glucose mg/dl Hemoglobin A1c (4.5-5.6) % Lactate 1.6 (0.4-2.0) mmol/L Calcium (8.5-10.1) mg/dl Phosphorus (2.5-4.9) mg/dl Magnesium (1.8-2.4) mg/dl Total Bilirubin (0.2-1) mg/dl Direct Bilirubin (0-0.2) mg/dl AST (15-37) U/L ALT (12-78) U/L Alkaline Phosphatase (45-117) U/L Lactate Dehydrogenase (87-241) U/L Troponin I 0.025 (0-0.045) ng/ml Total Protein (6.4-8.2) gm/dl Albumin (3.4-5.0) gm/dl Globulin (2.5-4.0) gm/dl Albumin/Globulin Ratio (0.9-2) Lipase 78308 H (73-393) U/L Carcinoembryonic Ag (0-2.5) ng/ml CA 19-9 Antigen TSH (0.300-4.500) uIu/ml Urine Color Urine Appearance (Clear) Urine pH (4.5-7.5) Ur Specific Cushing (1.000-1.030) Urine Protein (Negative) Urine Glucose (UA) (Negative) Urine Ketones (Negative) Urine Blood (Negative) Urine Nitrite (Negative) Urine Bilirubin (Negative) Urine Urobilinogen (Negative) Ur Leukocyte Esterase (Negative) Urine WBC (Auto) (0-5) /hpf Urine RBC (Auto) (0-4) /hpf U Hyaline Cast (Auto) (0-5) /lpf U Epithel Cells (Auto) (0-5) /lpf Urine Bacteria (Auto) (Negative) Ur Renal Epithelial Cell Hepatitis C Ab Screen (Neg) 09/14/19 09/14/19 09/14/19 Range/Units 06:10 05:33 05:33 WBC (4.8-10.8) K/uL RBC (4.7-6.1) M/uL Hgb (14.0-18.0) g/dL Hct (42-52) % MCV (80-100) fL MCH (25-34) pg MCHC (32-36) g/dL RDW Std Deviation (36.4-46.3) fL RDW Coeff of Celestino (11.5-14.5) % Plt Count (130-400) K/uL Immature Gran % (Auto) % Neut % (Auto) % Lymph % (Auto) % Ripley % (Auto) % Eos % (Auto) % Baso % (Auto) % Immature Gran # (Auto) (0.00-0.02) K/uL Neut # (Auto) (1.4-6.5) K/uL Lymph # (Auto) (1.2-3.4) K/uL Ripley # (Auto) (0.11-0.59) K/uL Eos # (Auto) (0-0.5) K/uL Baso # (Auto) (0-0.2) K/uL PT (9.0-12.0) Seconds INR (0.9-1.1) APTT (21.0-31.0) Seconds PTT Ratio Sodium (136-145) mmol/L Potassium (3.5-5.1) mmol/L Chloride (98-107) mmol/L Carbon Dioxide (21-32) mmol/L Anion Gap (3-11) BUN (7-18) mg/dl Creatinine (0.6-1.4) mg/dl Est Cr Clr Drug Dosing ml/min Est GFR ( Amer) Est GFR (Non-Af Amer) BUN/Creatinine Ratio (10-20) Glucose (70-99) mg/dl POC Glucose 158 H (70-99) mg/dl Estimat Average Glucose 117 mg/dl Hemoglobin A1c 5.7 H (4.5-5.6) % Lactate (0.4-2.0) mmol/L Calcium (8.5-10.1) mg/dl Phosphorus (2.5-4.9) mg/dl Magnesium (1.8-2.4) mg/dl Total Bilirubin (0.2-1) mg/dl Direct Bilirubin (0-0.2) mg/dl AST (15-37) U/L ALT (12-78) U/L Alkaline Phosphatase (45-117) U/L Lactate Dehydrogenase (87-241) U/L Troponin I (0-0.045) ng/ml Total Protein (6.4-8.2) gm/dl Albumin (3.4-5.0) gm/dl Globulin (2.5-4.0) gm/dl Albumin/Globulin Ratio (0.9-2) Lipase (73-393) U/L Carcinoembryonic Ag (0-2.5) ng/ml CA 19-9 Antigen TSH (0.300-4.500) uIu/ml Urine Color Urine Appearance (Clear) Urine pH (4.5-7.5) Ur Specific Cushing (1.000-1.030) Urine Protein (Negative) Urine Glucose (UA) (Negative) Urine Ketones (Negative) Urine Blood (Negative) Urine Nitrite (Negative) Urine Bilirubin (Negative) Urine Urobilinogen (Negative) Ur Leukocyte Esterase (Negative) Urine WBC (Auto) (0-5) /hpf Urine RBC (Auto) (0-4) /hpf U Hyaline Cast (Auto) (0-5) /lpf U Epithel Cells (Auto) (0-5) /lpf Urine Bacteria (Auto) (Negative) Ur Renal Epithelial Cell Hepatitis C Ab Screen Neg (Neg) 09/14/19 09/14/19 09/13/19 Range/Units 05:33 05:33 23:43 WBC 15.55 H (4.8-10.8) K/uL RBC 5.16 (4.7-6.1) M/uL Hgb 15.9 (14.0-18.0) g/dL Hct 45.3 (42-52) % MCV 87.8 (80-100) fL MCH 30.8 (25-34) pg MCHC 35.1 (32-36) g/dL RDW Std Deviation 46.9 H (36.4-46.3) fL RDW Coeff of Celestino 14.6 H (11.5-14.5) % Plt Count 232 (130-400) K/uL Immature Gran % (Auto) 0.3 % Neut % (Auto) 88.2 % Lymph % (Auto) 3.2 % Ripley % (Auto) 8.2 % Eos % (Auto) 0.0 % Baso % (Auto) 0.1 % Immature Gran # (Auto) 0.05 H (0.00-0.02) K/uL Neut # (Auto) 13.72 H (1.4-6.5) K/uL Lymph # (Auto) 0.49 L (1.2-3.4) K/uL Ripley # (Auto) 1.27 H (0.11-0.59) K/uL Eos # (Auto) 0.00 (0-0.5) K/uL Baso # (Auto) 0.02 (0-0.2) K/uL PT (9.0-12.0) Seconds INR (0.9-1.1) APTT (21.0-31.0) Seconds PTT Ratio Sodium 136 (136-145) mmol/L Potassium 3.3 L D (3.5-5.1) mmol/L Chloride 99 (98-107) mmol/L Carbon Dioxide 31 (21-32) mmol/L Anion Gap 6.0 (3-11) BUN 15 (7-18) mg/dl Creatinine 1.10 D (0.6-1.4) mg/dl Est Cr Clr Drug Dosing 73.2 ml/min Est GFR ( Amer) 84.1 Est GFR (Non-Af Amer) 72.6 BUN/Creatinine Ratio 13.7 (10-20) Glucose 160 H (70-99) mg/dl POC Glucose (70-99) mg/dl Estimat Average Glucose mg/dl Hemoglobin A1c (4.5-5.6) % Lactate (0.4-2.0) mmol/L Calcium 8.1 L D (8.5-10.1) mg/dl Phosphorus 2.6 (2.5-4.9) mg/dl Magnesium 2.2 (1.8-2.4) mg/dl Total Bilirubin 11.3 H (0.2-1) mg/dl Direct Bilirubin 9.6 H D (0-0.2) mg/dl AST 556 H (15-37) U/L ALT 593 H (12-78) U/L Alkaline Phosphatase 456 H (45-117) U/L Lactate Dehydrogenase (87-241) U/L Troponin I (0-0.045) ng/ml Total Protein 6.3 L D (6.4-8.2) gm/dl Albumin 2.8 L (3.4-5.0) gm/dl Globulin (2.5-4.0) gm/dl Albumin/Globulin Ratio (0.9-2) Lipase (73-393) U/L Carcinoembryonic Ag (0-2.5) ng/ml CA 19-9 Antigen TSH (0.300-4.500) uIu/ml Urine Color Dark Yellow Urine Appearance Clear (Clear) Urine pH 6.0 (4.5-7.5) Ur Specific Cushing > 1.045 H (1.000-1.030) Urine Protein 1+ H (Negative) Urine Glucose (UA) Negative (Negative) Urine Ketones Negative (Negative) Urine Blood Negative (Negative) Urine Nitrite Negative (Negative) Urine Bilirubin 2+ H (Negative) Urine Urobilinogen Negative (Negative) Ur Leukocyte Esterase Negative (Negative) Urine WBC (Auto) 1-5 (0-5) /hpf Urine RBC (Auto) 0-4 (0-4) /hpf U Hyaline Cast (Auto) 0 (0-5) /lpf U Epithel Cells (Auto) 5-10 H (0-5) /lpf Urine Bacteria (Auto) Negative (Negative) Ur Renal Epithelial Cell Not Reportable Hepatitis C Ab Screen (Neg) 09/13/19 09/13/19 09/13/19 Range/Units 23:13 20:36 18:47 WBC (4.8-10.8) K/uL RBC (4.7-6.1) M/uL Hgb (14.0-18.0) g/dL Hct (42-52) % MCV (80-100) fL MCH (25-34) pg MCHC (32-36) g/dL RDW Std Deviation (36.4-46.3) fL RDW Coeff of Celestino (11.5-14.5) % Plt Count (130-400) K/uL Immature Gran % (Auto) % Neut % (Auto) % Lymph % (Auto) % Ripley % (Auto) % Eos % (Auto) % Baso % (Auto) % Immature Gran # (Auto) (0.00-0.02) K/uL Neut # (Auto) (1.4-6.5) K/uL Lymph # (Auto) (1.2-3.4) K/uL Ripley # (Auto) (0.11-0.59) K/uL Eos # (Auto) (0-0.5) K/uL Baso # (Auto) (0-0.2) K/uL PT (9.0-12.0) Seconds INR (0.9-1.1) APTT (21.0-31.0) Seconds PTT Ratio Sodium (136-145) mmol/L Potassium (3.5-5.1) mmol/L Chloride (98-107) mmol/L Carbon Dioxide (21-32) mmol/L Anion Gap (3-11) BUN (7-18) mg/dl Creatinine (0.6-1.4) mg/dl Est Cr Clr Drug Dosing ml/min Est GFR ( Amer) Est GFR (Non-Af Amer) BUN/Creatinine Ratio (10-20) Glucose (70-99) mg/dl POC Glucose 165 H (70-99) mg/dl Estimat Average Glucose mg/dl Hemoglobin A1c (4.5-5.6) % Lactate Cancelled 2.7 H* (0.4-2.0) mmol/L Calcium (8.5-10.1) mg/dl Phosphorus (2.5-4.9) mg/dl Magnesium (1.8-2.4) mg/dl Total Bilirubin (0.2-1) mg/dl Direct Bilirubin (0-0.2) mg/dl AST (15-37) U/L ALT (12-78) U/L Alkaline Phosphatase (45-117) U/L Lactate Dehydrogenase (87-241) U/L Troponin I (0-0.045) ng/ml Total Protein (6.4-8.2) gm/dl Albumin (3.4-5.0) gm/dl Globulin (2.5-4.0) gm/dl Albumin/Globulin Ratio (0.9-2) Lipase (73-393) U/L Carcinoembryonic Ag (0-2.5) ng/ml CA 19-9 Antigen TSH (0.300-4.500) uIu/ml Urine Color Urine Appearance (Clear) Urine pH (4.5-7.5) Ur Specific Cushing (1.000-1.030) Urine Protein (Negative) Urine Glucose (UA) (Negative) Urine Ketones (Negative) Urine Blood (Negative) Urine Nitrite (Negative) Urine Bilirubin (Negative) Urine Urobilinogen (Negative) Ur Leukocyte Esterase (Negative) Urine WBC (Auto) (0-5) /hpf Urine RBC (Auto) (0-4) /hpf U Hyaline Cast (Auto) (0-5) /lpf U Epithel Cells (Auto) (0-5) /lpf Urine Bacteria (Auto) (Negative) Ur Renal Epithelial Cell Hepatitis C Ab Screen (Neg) 09/13/19 09/13/19 09/13/19 Range/Units 17:15 17:15 17:15 WBC (4.8-10.8) K/uL RBC (4.7-6.1) M/uL Hgb (14.0-18.0) g/dL Hct (42-52) % MCV (80-100) fL MCH (25-34) pg MCHC (32-36) g/dL RDW Std Deviation (36.4-46.3) fL RDW Coeff of Celestino (11.5-14.5) % Plt Count (130-400) K/uL Immature Gran % (Auto) % Neut % (Auto) % Lymph % (Auto) % Ripley % (Auto) % Eos % (Auto) % Baso % (Auto) % Immature Gran # (Auto) (0.00-0.02) K/uL Neut # (Auto) (1.4-6.5) K/uL Lymph # (Auto) (1.2-3.4) K/uL Ripley # (Auto) (0.11-0.59) K/uL Eos # (Auto) (0-0.5) K/uL Baso # (Auto) (0-0.2) K/uL PT 11.5 (9.0-12.0) Seconds INR 1.1 (0.9-1.1) APTT 25.8 (21.0-31.0) Seconds PTT Ratio 0.9 Sodium 133 L (136-145) mmol/L Potassium 2.2 L* (3.5-5.1) mmol/L Chloride 92 L (98-107) mmol/L Carbon Dioxide 27 (21-32) mmol/L Anion Gap 15.0 H (3-11) BUN 20 H (7-18) mg/dl Creatinine 1.45 H (0.6-1.4) mg/dl Est Cr Clr Drug Dosing 55.5 ml/min Est GFR ( Amer) 60.2 Est GFR (Non-Af Amer) 52.0 BUN/Creatinine Ratio 14.1 (10-20) Glucose 187 H (70-99) mg/dl POC Glucose (70-99) mg/dl Estimat Average Glucose mg/dl Hemoglobin A1c (4.5-5.6) % Lactate (0.4-2.0) mmol/L Calcium 9.8 (8.5-10.1) mg/dl Phosphorus 2.1 L (2.5-4.9) mg/dl Magnesium 2.4 (1.8-2.4) mg/dl Total Bilirubin 8.2 H (0.2-1) mg/dl Direct Bilirubin 6.0 H (0-0.2) mg/dl AST 614 H (15-37) U/L ALT 755 H (12-78) U/L Alkaline Phosphatase 611 H (45-117) U/L Lactate Dehydrogenase < 6 L (87-241) U/L Troponin I 0.023 (0-0.045) ng/ml Total Protein 7.9 (6.4-8.2) gm/dl Albumin 3.5 (3.4-5.0) gm/dl Globulin 4.4 H (2.5-4.0) gm/dl Albumin/Globulin Ratio 0.8 L (0.9-2) Lipase 81375 H (73-393) U/L Carcinoembryonic Ag (0-2.5) ng/ml CA 19-9 Antigen TSH 1.430 (0.300-4.500) uIu/ml Urine Color Urine Appearance (Clear) Urine pH (4.5-7.5) Ur Specific Cushing (1.000-1.030) Urine Protein (Negative) Urine Glucose (UA) (Negative) Urine Ketones (Negative) Urine Blood (Negative) Urine Nitrite (Negative) Urine Bilirubin (Negative) Urine Urobilinogen (Negative) Ur Leukocyte Esterase (Negative) Urine WBC (Auto) (0-5) /hpf Urine RBC (Auto) (0-4) /hpf U Hyaline Cast (Auto) (0-5) /lpf U Epithel Cells (Auto) (0-5) /lpf Urine Bacteria (Auto) (Negative) Ur Renal Epithelial Cell Hepatitis C Ab Screen (Neg) 09/13/19 Range/Units 17:15 WBC 18.68 H (4.8-10.8) K/uL RBC 5.39 (4.7-6.1) M/uL Hgb 17.1 (14.0-18.0) g/dL Hct 47.2 (42-52) % MCV 87.6 (80-100) fL MCH 31.7 (25-34) pg MCHC 36.2 H (32-36) g/dL RDW Std Deviation 45.7 (36.4-46.3) fL RDW Coeff of Celestino 14.2 (11.5-14.5) % Plt Count 266 (130-400) K/uL Immature Gran % (Auto) 0.3 % Neut % (Auto) 80.8 % Lymph % (Auto) 7.4 % Ripley % (Auto) 11.2 % Eos % (Auto) 0.1 % Baso % (Auto) 0.2 % Immature Gran # (Auto) 0.05 H (0.00-0.02) K/uL Neut # (Auto) 15.10 H (1.4-6.5) K/uL Lymph # (Auto) 1.38 (1.2-3.4) K/uL Ripley # (Auto) 2.10 H (0.11-0.59) K/uL Eos # (Auto) 0.01 (0-0.5) K/uL Baso # (Auto) 0.04 (0-0.2) K/uL PT (9.0-12.0) Seconds INR (0.9-1.1) APTT (21.0-31.0) Seconds PTT Ratio Sodium (136-145) mmol/L Potassium (3.5-5.1) mmol/L Chloride (98-107) mmol/L Carbon Dioxide (21-32) mmol/L Anion Gap (3-11) BUN (7-18) mg/dl Creatinine (0.6-1.4) mg/dl Est Cr Clr Drug Dosing ml/min Est GFR ( Amer) Est GFR (Non-Af Amer) BUN/Creatinine Ratio (10-20) Glucose (70-99) mg/dl POC Glucose (70-99) mg/dl Estimat Average Glucose mg/dl Hemoglobin A1c (4.5-5.6) % Lactate (0.4-2.0) mmol/L Calcium (8.5-10.1) mg/dl Phosphorus (2.5-4.9) mg/dl Magnesium (1.8-2.4) mg/dl Total Bilirubin (0.2-1) mg/dl Direct Bilirubin (0-0.2) mg/dl AST (15-37) U/L ALT (12-78) U/L Alkaline Phosphatase (45-117) U/L Lactate Dehydrogenase (87-241) U/L Troponin I (0-0.045) ng/ml Total Protein (6.4-8.2) gm/dl Albumin (3.4-5.0) gm/dl Globulin (2.5-4.0) gm/dl Albumin/Globulin Ratio (0.9-2) Lipase (73-393) U/L Carcinoembryonic Ag (0-2.5) ng/ml CA 19-9 Antigen TSH (0.300-4.500) uIu/ml Urine Color Urine Appearance (Clear) Urine pH (4.5-7.5) Ur Specific Cushing (1.000-1.030) Urine Protein (Negative) Urine Glucose (UA) (Negative) Urine Ketones (Negative) Urine Blood (Negative) Urine Nitrite (Negative) Urine Bilirubin (Negative) Urine Urobilinogen (Negative) Ur Leukocyte Esterase (Negative) Urine WBC (Auto) (0-5) /hpf Urine RBC (Auto) (0-4) /hpf U Hyaline Cast (Auto) (0-5) /lpf U Epithel Cells (Auto) (0-5) /lpf Urine Bacteria (Auto) (Negative) Ur Renal Epithelial Cell Hepatitis C Ab Screen (Neg) Diagnostic Findings CT A/P IMPRESSION: 1. Interval placement of 2 biliary enteric stents 2. Persistent but perhaps slightly diminished intrahepatic biliary ductal dilatation 3. Interval development of acute interstitial pancreatitis. No evidence of pancreatic necrosis 4. Cholelithiasis versus gallbladder wall calcification. 5. No evidence of bowel obstruction. No evidence of free air. PG Care Time/CCT Total # of Minutes Spent Total Time Spent with Patient: Total time spent is greater than 50% in coordination of care (as documented) at patient's floor/unit and/or counseling patient: Coding Level of Care Code 33267 Subseq Hosp Care Lvl 3 Diagnoses Pancreatitis K85.90 Jaundice R17 BRADLEY (acute kidney injury) N17.9 Hypokalemia E87.6 Impaired fasting glucose R73.01 Hypertension I10 Hypertension type: essential hypertension Dyslipidemia E78.5 Pre-diabetes R73.03 DVT prophylaxis Z29.9 (1) Hypertension Hypertension type: essential hypertension Qualified Code(s): I10 - Essential (primary) hypertension
--- NOTE | 2019-09-14 14:34 | Consultation Report ---
DATE OF CONSULTATION: 09/14/2019 GASTROINTESTINAL CONSULTATION NOTE REASON FOR EVALUATION: Post-ERCP pancreatitis. HISTORY OF PRESENT ILLNESS: The patient is a 59-year-old who for the last 2 weeks has not been feeling well with decreased appetite, bloated abdominal pain and then had a severe attack of pain in the right upper quadrant radiating to the right flank. 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 He had an ultrasound and CT scan by Dr. Dodson on 09/08, which showed biliary obstruction and suspicion for cholangiocarcinoma. He was referred to where he underwent an ERCP yesterday. He had some brushings of his bile duct that looked narrowed and suspicious for cholangiocarcinoma. He had 2 biliary stents placed and did well, but on the way home from [place], he developed severe abdominal pain and was evaluated in the Emergency Room where he was found to have a lipase of almost 14,000 consistent with post-ERCP pancreatitis. The patient has been hospitalized and placed on lactated Ringers at 200 an hour, bowel rest, pain medication and he was placed on Zosyn because of the bile duct stents to prevent infection. He is currently n.p.o. except for ice chips. PAST MEDICAL HISTORY: Remarkable for hypertension and dyslipidemia. MEDICATIONS: Include potassium, metoprolol, atorvastatin, glucosamine chondroitin, and [place]-3 fish oil. ALLERGIES: None. FAMILY HISTORY: Father had lung cancer. SOCIAL HISTORY: The patient is single. 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 Does not smoke, drinks alcohol in the form of beer about every other day, none for the last 2 weeks. REVIEW OF SYSTEMS: Similar to above. The remainder is negative. PHYSICAL EXAMINATION: GENERAL: The patient appears in moderate pain but in no acute distress. VITAL SIGNS: Normal. He is afebrile. ABDOMEN: Shows no scars. Bowel sounds are hypoactive. There is tenderness throughout the abdomen. No localized tenderness. SKIN: Showed him to be visibly jaundiced. IMPRESSION AND PLAN: The patient has post-ERCP pancreatitis. ERCP was performed because of blocked bile duct suggestive of cholangiocarcinoma. Cytology will be pending from [place] next week. I plan on ordering a CEA and CA 19-9 and continue supportive measures instituted already. Once he is able to have a little bit of appetite, I think we should advance him at that time to a low-fat diet. I will continue to follow the patient during his hospital stay.
[2019-09-15] MEDS: INSULIN ASPART 100 UNITS/ML 3 ML PEN SC SCH ×3 (00:13→12:55)
[2019-09-15] MEDS ORDERED: MoRPHine SULFATE 4 MG/ML 1 ML CARP\\VIAL IV PRN (00:24)
[2019-09-15] MEDS: LACTATED RINGER'S 1,000 ML IV SCH ×3 (00:50→11:28)
[2019-09-15] MEDS: PIPERACILLIN/TAZOBACTAM 3.375 GM in DEXTROSE 5% 100 ML IV SCH (01:49)
[2019-09-15] MEDS ORDERED: HYDROmorphone INJ 1 MG/ML SYRINGE IM STA (03:13)
[2019-09-15] MEDS ORDERED: HYDROmorphone INJ 1 MG/ML SYRINGE ONE (03:23)
[2019-09-15 06:03] LABS: Hematocrit (blood only) 44.3 % (42-52); Hemoglobin 15.6 g/dL (14.0-18.0); Mean Corpuscular Hgb Conc 35.2 g/dL (32-36); Mean Corpuscular Volume 87.9 fL (80-100); Platelet Count 256 K/uL (130-400); RDW Coefficient of Variation 15.1 % (11.5-14.5); RDW Standard Deviation 48.5 fL (36.4-46.3); Red Blood Count 5.04 M/uL (4.7-6.1); White Blood Count 32.31 K/uL (4.8-10.8)
[2019-09-15 06:32] LABS: Basophils # (auto) 0.03 K/uL (0-0.2); Basophils % (auto) 0.1 %; Immature Granulocytes # (auto) 0.29 K/uL (0.00-0.02); Immature Granulocytes % (auto) 0.9 %; Lymphocytes # (auto) 1.16 K/uL (1.2-3.4); Lymphocytes % (auto) 3.6 %; Monocytes % (auto) 8.7 %; Neutrophils # (auto) 28.03 K/uL (1.4-6.5); Neutrophils % (auto) 86.7 %
[2019-09-15 06:38] LABS: Albumin Level 2.1 gm/dl (3.4-5.0); BUN Creatinine Ratio 19.6 (10-20); Bilirubin,Total 18.4 mg/dl (0.2-1); Calcium 7.1 mg/dl (8.5-10.1); Total Protein 5.4 gm/dl (6.4-8.2)
[2019-09-15 06:39] LABS: Est GFR (Non-African American) 75.9; Magnesium 1.9 mg/dl (1.8-2.4); Potassium 2.9 mmol/L (3.5-5.1)
[2019-09-15 06:40] LABS: Bilirubin Direct 13.8 mg/dl (0-0.2)
[2019-09-15] MEDS ORDERED: IOVERSOL 100ml IV PRN (06:46)
--- NOTE | 2019-09-15 07:06 | CT Scan Report ---
CT abd pelvis IV con only CLINICAL HISTORY: Worsening abdominal pain status post stent COMPARISON STUDY: 09/13/2019 TECHNIQUE: The patient was scanned in a dynamic helical fashion during intravenous administration of 94 cc of Optiray 320. A dose lowering technique was utilized adhering to the principles of ALARA. CT DOSE: 627.41 mGy.cm FINDINGS: Lower chest: Since the prior study, the patient has developed bilateral pleural effusions with basila r airspace opacities, likely atelectatic. Liver: 2 biliary enteric stent are visualized. There is persistent but decreasing intrahepatic biliar y ductal dilatation. There is a 26 mm right lobe hepatic cyst. Gallbladder: Contracted. Cholelithiasis. Pericholecystic fluid. Spleen: Normal in size and attenuation. Pancreas: There is progressive peripancreatic infiltration with increasing peripancreatic fluid. The splenic vein and portal vein remain patent. The superior mesenteric vein remains patent. There is an 8.5 cm acute peripancreatic fluid collection abutting the greater curvature of the stomach. There is perisplenic fluid. Adrenal glands: Unremarkable. Kidneys: There is a 32 mm right renal parapelvic cyst Bowel: There are no transition zones indicate bowel obstruction. There is no evidence of acute divert iculitis. The appendix appears normal. Peritoneum: There is increasing fluid within the abdomen. Vasculature: The abdominal aorta is normal in course and caliber. Adenopathy: None. Pelvic viscera: Inhomogeneous enhancement of the bladder, likely is secondary to mixing artifact. Skeletal structures: No destructive osseous lesions are seen. IMPRESSION: 1. Persistent but decreasing intrahepatic biliary ductal dilatation. Two biliary enteric stent are vi sualized 2. Worsening acute interstitial pancreatitis with increasing peripancreatic fluid, increasing ascites , interval development of an 8.5 cm acute peripancreatic fluid collection abutting the greater curvat ure the stomach, and interval development of bilateral pleural effusions with basilar atelectasis 3. Cholelithiasis. Contracted gallbladder 4. No evidence of bowel obstruction. No evidence of free air. ACT 112: Negative or not required by law. Electronically signed by: Guillermo Juan M.D. 09/15/2019 7:05 AM
[2019-09-15] MEDS ORDERED: HYDROmorphone INJ 0.5 MG/0.5 ML SYR IV STA (08:33)
[2019-09-15] MEDS ORDERED: HYDROmorphone INJ 1 MG/ML SYRINGE IV STA ×2 (08:35→13:48)
[2019-09-15] MEDS: POTASSIUM CHLORIDE / WTR 10 MEQ/100 ML PLCT IV SCH ×4 (08:41→11:38)
[2019-09-15] MEDS ORDERED: METOPROLOL SUCC 50MG EXT REL TAB PO SCH (09:00)
[2019-09-15] MEDS ORDERED: HYDROmorphone INJ 1 MG/ML SYRINGE IV PRN (09:07)
[2019-09-15] MEDS ORDERED: IMIPENEM/CILASTATIN CONSULT ACTIVE PRN (09:22)
[2019-09-15] MEDS ORDERED: DEXTROSE 5% IV SCH (10:00)
[2019-09-15] MEDS ORDERED: IMIPENEM IV SCH (10:00)
[2019-09-15] MEDS ORDERED: CILASTATIN SODIUM IV SCH (10:00)
[2019-09-15] MEDS: HYDROmorphone INJ 2 MG/ML SYR/VIAL IV PRN ×2 (11:37→16:14)
--- NOTE | 2019-09-15 11:47 | Hospitalist Progress Note ---
Date of Service September 15, 2019 Assessment & Plan Admission and Anticipated Discharge Date Admission Date: September 13, 2019 Results & Data ([facility]) Vital Signs (Past 12 Hours) Vital Signs Temp Pulse Pulse Pulse Pulse Resp BP 09/15/19 08:59 108 H 141/100 H 09/15/19 07:45 168/110 H 09/15/19 07:40 36.5 C 129 H 18 158/100 H 09/15/19 07:25 36.5 C 129 H 18 163/115 H 09/15/19 02:54 09/15/19 02:53 117 H 165/107 H 09/15/19 01:55 121 H 153/112 H 09/14/19 23:49 112 H 163/103 H BP Pulse Ox 09/15/19 08:59 142/103 H 09/15/19 07:45 09/15/19 07:40 158/100 H 93 09/15/19 07:25 158/100 H 93 09/15/19 02:54 155/110 H 09/15/19 02:53 09/15/19 01:55 09/14/19 23:49 PG Care Time/CCT Total # of Minutes Spent Total Time Spent with Patient: Total time spent is greater than 50% in coordination of care (as documented) at patient's floor/unit and/or counseling patient: Coding
--- NOTE | 2019-09-15 11:50 | Discharge Summary ---
Date of Service September 15, 2019 Admission HPI Per Admitting Provider 59 y/o M c/o abd pain. Pt states he has been having abd pain over the last week. He looked into these sx and thought it was a "gallbladder attack". He has no hx of this prior. He noted that he was jaundiced on Monday. He was seen by PCP for this and CTAP and US were done on 09/08 and noted as suspicious for cholangiocarcinoma. He was sent to [facility] today for ERCP. He had 2 stents placed. He was feeling improved initially and d/c'd to home. He was told he could eat and had a chicken wrap prior to coming back to [place] that had dressing on it. He started to have worsening abd pain shortly after. He also developed n/v. Pain is epigastric and worse than the pain he was having prior. He does feel that his jaundice is very slightly improved. Pt denies fever, SOB, chest pain, c/d, LE pain or swelling. Pt states his appetite has been low for about 2 weeks. No prior hx of similar sx. Pt does feel mildly improved s/p IVF and zosyn. Admission Exam Per Admitting Provider Constitutional: WD/WN, vitals as above Eyes: reactive pupils sclera yellow Neck: normal visual inspection and trachea midline Respiratory: normal respiratory effort, lungs clear to auscultation Cardiovascular: Rate/Rhythm: regular rate and regular rhythm Gastrointestinal (Abdomen): Inspection/Auscultation: + abdomen distended Percussion/Palpation: + abdomen tender (epigastric) and abdomen soft Musculoskeletal: Head/Neck/Chest: normocephalic and head atraumatic negative for edema, peripheral pulses intact Skin: + jaundice (eyes yellowed, facial yellowing, mild yellowing of extremities) Neurologic: awake; not confused Speech / Cognition: normal speech Psychiatric: A+Ox3, euthymic affect Principal Diagnosis Post ERCP Pancreatitis with acute severe necrotizing pancreatitis/obstructive jaundice Discharge Exam Constitutional well developed, + ill appearing and + obese; + uncomfortable Eyes + scleral abnormality (icteric sclerae) and PERRL ENMT Ears: no hearing impairment Nose: no external nose abnormality Neck trachea midline, no thyromegaly Respiratory normal respiratory effort, lungs clear to auscultation Cardiovascular Rate/Rhythm: regular rhythm and + tachycardic Heart Sounds: normal S1 and normal S2; no murmur Vessels: no JVD Gastrointestinal (Abdomen) Inspection/Auscultation: + abdomen distended and normal bowel sounds Percussion/Palpation: + abdomen tender (extremely tender to palpation epigastric/ruq. diffuse tenderness) and + ascites Skin jaundiced warm, clammy Neurologic PERRL, EOMI, accommodation nl, no face palsy, no dysarthria Psychiatric A+Ox3, euthymic affect Lymphatic no cervical or axillary lymphadenopathy Discharge Data Allergies Allergy/AdvReac Type Severity Reaction Status Date / Time No Known Allergies Allergy Unverified 09/13/19 16:35 Consultations 09/13/19 20:09 ED Decision to Admit Stat 09/14/19 09:02 Consult Gastroenterology Routine Ordered Studies 09/13/19 17:03 CT abd pelvis IV con only Stat CXR 09/15/19 03:39 CT Abd and Pelvis [CT abd pelvis IV con only] Urgent Hospital Course (1) Pancreatitis: * Secondary to ERCP with stent placement AM 09/12 at [facility] with brushing of bile duct that looks suspicious for cholangiocarcinoma. Pathology pending at [facility] * CT A/P with evidence of acute pancreatitis on admission with lipase 28,273 which trended downward to 3000 prior to discharge. LDH <7. Lactic initially elevated at 2.7, repeat 1.6 * GI on consult. CA19-9 pending and CEA 0.6 * Blood cultures pending-NGTD * continued on LR @ 200cc/hr * Continued IV Zosyn (covered for stent as patient d/c from [facility] on Augmentin) --> Patient switched to Primaxin at instruction of [facility] Dr. Suarez in AM 09/14 for worsening leukocytosis and concern for necrotizing pancreatitis * Morphine switched to Dilaudid for increased pain * Repeat CT A/P for worsening pain which showed worsening acute interstitial pancreatitis with increasing peripancreatic fluid, increasing ascites, interval development of an 8.5 cm acute peripancreatic fluid collection abutting the greater curvature the stomach, and interval development of bilateral pleural effusions with basilar atelectasis * Discussed with both [facility] (Dr. Sepulveda and Dr Suarez/GI - no bed available) and [facility] (Dr. Cheng) * Patient accepted to [facility] for possible intervention (2) Jaundice: * See above -- started ~2 weeks ago, jaundice/darkened urine/light stools/pruritis. Saw PCP who referred to [facility] for ERCP with stenting x 2. Concerns for cholangiocarcinoma * Tbili on admission 8.2 with elevation to 18.4 morning of 09/14, Direct bili 13.8 * AST/ALT 623/557 with alk phos 376 * Repeat in afternoon after initiation primaxin with Tbili 10.9, direct bili 8.1, AST/ALT 484/490, alk phos 339 * Transfer to [facility] as above (3) BRADLEY (acute kidney injury): * Cr 1.45 on admission * Improved to 1.06 on AM labs * Increased IVF as above (4) Hypokalemia: * Secondary to recent decreased PO intake -- 2.2 on admission and given replacement * 2.9 on AM labs -- ordered 4 K riders (had received 2 on repeat labs at 3.3) -- continued to replace (5) Impaired fasting glucose: * Denies knowledge of this. A1c 55. in 2018. Repeat at 5.7 -- counseled on pre-DM and follow up with PCP outpatient * SSI prn (6) Hypertension: * Metoprolol 100mg XL * BP elevated secondary to pain 153/105 * Pain medications changed to dilaudid for pain control * Hydralazine prn SBP >180, DBP >110 (7) Dyslipidemia: * Holding home meds as patient NPO -- patient on atorvastatin 40mg daily outpatient (8) Pre-diabetes: * See above under impaired fasting glucose (9) DVT prophylaxis: * SCDs while inpatient Patient accepted and awaiting bed at [facility]. Transfer when transportation available. Total Time Total Time Spent Total Time Spent (In Minutes): 75 Discharge Plan Discharge Items Patient Disposition: Transfer Acute Care Hospital Reason For Visit: PANCREATITIS Discharge Diagnosis: Acute severe necrotizing pancreatitis, pseuodcyst, obstructive jaundice Condition on Discharge: Serious Activity: As commented below Lifting: None Exercise/Sports: Rest today Non-emergency contact: Primary Care Provider Call non-emergency contact if: you have any medication questions Follow-up/Referrals: Rickie Alejo MD [Primary Care Provider] - Diet: Nothing by Mouth Addtl Attending Provider Instructions: transferred to [facility] Pending Studies at Discharge: Yes (Blood cultures) Stand-Alone Forms: [facility] Skilled Items Patient informed of condition?: Yes DNR: No Discharge Level of Care: Other Communicable Disease: No Discharge Prognosis: Stable Lines: Peripheral IV Urinary Catheter: No Medications and DC Order Prescriptions: New Imipenem/Cilastatin Consult [Consult] 1 ea N/A UD PRN (Reason: 750) Qty: 1 RF: 0 Continued metoprolol succinate 100 mg tablet extended release 24 hr 100 mg PO DAILY Qty: 30 RF: 2 Discontinued potassium chloride 10 mEq tablet extended release 10 meq PO DAILY Qty: 90 RF: 3 omega 5-ljl-miq-fish oil [Fish Oil] 1,000 mg (120 mg-180 mg) Capsule 1 cap PO DAILY RF: 0 Glucosamine Chondroitin 550-30-1 mg Capsule 1 cap PO QAM RF: 0 atorvastatin [Lipitor] 40 mg tablet 40 mg PO DAILY RF: 0 Discharge Orders: Discharge Order (Routine); Ordered 09/15/19 Ordered By: Radha Jaquez Admission Data Admit Date/Time: 09/13/19 21:27 Attending Provider: Radha Jaquez Admit Provider: Mayra Prescott Primary Care Provider: Rickie Alejo Other Providers: Bere Gaona ; Vito Gonzalez Other Interventions: Discharge Summary Assessment (RN) Last Done: 09/15/19 14:25 Supervising Physician Co-Signing Physician Notes PA Supervision Note: I personally saw and examined the patient. I verified all phan points and agree with SANTI Finney with the following exceptions and/or additions: Pt continues to have severe abdominal pain, some nausea but no vomiting. Is now moving his bowels this AM x 3. Requiring high doses of IV Dilaudid for pain control. Afebrile but leukocytosis significantly worse today, development of pancreatic fluid collection and concern for necrotizing pancreatitis prompted evaluation for transfer to tertiary care facility. Obstructive jaundice also worsening. Vitals reviewed NAD, appears jaundiced +scleral icterus, MMM tachycardic, reg rhythm, no mgr CTAB no wcr but decreased at bases Abd hypoactive BS, +diffuse +TTP without guarding, with moderate distension Ext no edema, cap refill < 2 sec Neuro-AAOx3, moving all extremities 59 yo male here with recent biliary stent placement for suspected cholangiocarcinoma and obstructive jaundice, here with post-ERCP necrotizing pancreatitis and worsening obstructive jaundice. Continue aggressive IVF resuscitation, pain control, keep NPO, broadened abx coverage today to Imipenem for worsening leukocytosis With fluid collection around pancreas developed in the last [address] scan Needs GI intervention at tertiary care facility Transfer to [facility] as soon as bed is available, accepting Physician is Dr. Cheng Coding Level of Care Code D/C Day Management >30 mins Diagnoses Pancreatitis K85.90 Jaundice R17 BRADLEY (acute kidney injury) N17.9 Hypokalemia E87.6 Impaired fasting glucose R73.01 Hypertension I10 Hypertension type: essential hypertension Dyslipidemia E78.5 Pre-diabetes R73.03 DVT prophylaxis Z29.9
[2019-09-15 12:20] LABS: Bilirubin Direct 8.1 mg/dl (0-0.2); Potassium 3.3 mmol/L (3.5-5.1)
[2019-09-15 12:21] LABS: Albumin Level 2.2 gm/dl (3.4-5.0); BUN Creatinine Ratio 21.6 (10-20); Bilirubin,Total 10.9 mg/dl (0.2-1); Calcium 6.9 mg/dl (8.5-10.1); Creatinine Clr Calc Pharmacy 76.7 ml/min; Est GFR (Non-African American) 76.8; Total Protein 5.7 gm/dl (6.4-8.2)
--- NOTE | 2019-09-15 12:27 | Progress Notes ---
DATE: 09/15/2019 SUBJECTIVE: The patient continues to be in significant abdominal pain requiring opiate analgesia for treatment. He does have very little appetite. OBJECTIVE: Today, his blood pressure is 142/103, pulse 108, temperature is 36.5, O2 saturation on room air is 93%. Of note is that his white count is doubled to 32.31 with a left shift. C-reactive protein is 15.8. CEA is normal at 0.6. CA 19-9 is pending. On exam, he is markedly jaundiced. His abdomen shows absent bowel sounds. He is very tender to light percussion, particularly in the epigastric area and left upper quadrant. IMPRESSION AND PLAN: The patient has significant pancreatitis following ERCP 2 days ago with worsening white blood cell count. His antibiotics were changed from Zosyn to Primaxin and [facility] was notified earlier today to arrange transfer, but there are no beds. I had a long discussion with the patient and his 2 sisters, and if there is no bed available by early this afternoon at [facility], then they would request transfer to [facility]. This was conveyed to the hospitalist who will be working on these arrangements this afternoon.
[2019-09-15 13:05] LABS: Mean Platelet Volume 14.3 fL (7.4-10.4); Platelet Count 235 K/uL (130-400)
[2019-09-15 13:29] LABS: ALC (manual) 1.76 K/uL (1.2-3.4); Hematocrit (blood only) 40.3 % (42-52); Lymphocytes # (manual) 1.76 K/uL (1.2-3.4); Lymphocytes % (manual) 6.2 %; Mean Corpuscular Hemoglobin 30.4 pg (25-34); Mean Corpuscular Hgb Conc 34.7 g/dL (32-36); Mean Corpuscular Volume 87.6 fL (80-100); Monocytes # (manual) 2.27 K/uL (0.11-0.59); Neutrophils % (manual) 85.8 %; Toxic Vacuolation 1+; White Blood Count 28.32 K/uL (4.8-10.8)
== END 2019-09-15 16:20 | disposition short-term general hospital (02) | DRG 438 ==
LOC: ED 16:32 → 3W 21:27 → SUATTDRO 21:27 → 3W 21:51

== ENCOUNTER 2019-10-04 12:16 | Inpatient (IN) ==
--- NOTE | 2019-10-04 12:49 | Emergency Department Note ---
History of Present Illness General Chief complaint: Shortness of Breath/Dyspnea Stated complaint: SOB, FLUID IN LUNGS Time Seen by Provider: 10/04/19 12:34 History of Present Illness Maximum Pain Intensity: 4 The patient is a 59-year-old male who presented to the emergency department at t he request of his primary care physician for an evaluation of shortness of breath. The patient was recently treated for pancreatitis because of a bile duct obstruction. He has a biliary stent in place. He started to develop ascites as well as fluid on his lungs. He was treated by his primary care physician but then was treated in our hospital and transferred to [facility]. The patient states that he is been having difficulty breathing and chest pain ever since. He notices pain with inspiration. The patient has lower extremity swelling but it is no worse than usual. He has noticed some decreased urine output. He denies having any nausea vomiting. He does complain of some loose bowel movements but recently was treated for C. difficile. He states that the symptoms have significantly improved. The patient denies having any recent traveling other than his hospitalizations to [facility] over the last few months. The patient was noted to have hypoxia by the visiting nurse. At the request of his family doctor he was sent to the emergency department. Home Medications Home Medications Medication Instructions Recorded Confirmed Type metoprolol tartrate 50 mg tablet 50 mg PO BID #60 tab 10/02/19 10/04/19 Rx acetaminophen [Tylenol Extra 0 mg PO Q6H PRN 10/04/19 10/04/19 History Strength] atorvastatin 40 mg PO QAM 10/04/19 10/04/19 History potassium chloride 10 meq PO QAM 10/04/19 10/04/19 History Allergies Allergy/AdvReac Type Severity Reaction Status Date / Time No Known Allergies Allergy Unverified 10/04/19 13:44 Past Med/Surg History Medical History Carpal tunnel syndrome on both sides Dyslipidemia (Chronic) Hip pain Hypertension (Chronic) Impaired fasting glucose (Chronic) Liver mass Surgical History [place] teeth removed Family History Father Lung cancer Denies family history of Ovarian cancer Prostate cancer Breast cancer Colorectal cancer Social History Preferred Language: Welsh Communication Ability: Effective Visual Impairment: No Limitations Hearing Ability: Normal 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 Adult Required: No Beliefs That Will Affect Care: None marital status: Single Current Living Situation: Alone current occupational status: employed 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 and A total of 10 systems reviewed and were otherwise negative Physical Exam Vital Signs Vital Signs - 24 hr 10/04/19 12:27 10/04/19 13:00 10/04/19 13:06 Temperature 37.2 C Temperature Source Oral Pulse Rate 121 H 110 H Pulse Rate from SpO2 Sensor 110 H Respiratory Rate 20 23 Respiratory Effort / Characteristics Non-Labored Spontaneous Non-Labored Spontaneous Respiratory Depth Normal Shallow Respiratory Pattern Regular Regular Blood Pressure 136/88 136/90 Blood Pressure Mean 104 104 Pulse Oximetry 89 L 89 L 95 Oxygen Delivery Method Room Air Room Air Nasal Cannula Oxygen Flow Rate 2 Sepsis Recent Fever Within 48 Hours No Sepsis New/Unexplained Change in Mental Status No Sepsis Action Taken by Nursing No Action Required 10/04/19 14:00 10/04/19 14:30 10/04/19 15:00 Temperature Temperature Source Pulse Rate 109 H 113 H Pulse Rate from SpO2 Sensor 110 H 113 H 107 H Respiratory Rate 25 H Respiratory Effort / Characteristics Respiratory Depth Respiratory Pattern Blood Pressure 135/90 156/93 H 137/93 Blood Pressure Mean 101 105 111 Pulse Oximetry 95 96 96 Oxygen Delivery Method Oxygen Flow Rate Sepsis Recent Fever Within 48 Hours Sepsis New/Unexplained Change in Mental Status Sepsis Action Taken by Nursing 10/04/19 15:30 10/04/19 16:00 Temperature Temperature Source Pulse Rate 109 H Pulse Rate from SpO2 Sensor 107 H 109 H Respiratory Rate 28 H Respiratory Effort / Characteristics Respiratory Depth Respiratory Pattern Blood Pressure 141/89 H 139/91 Blood Pressure Mean 109 101 Pulse Oximetry 95 95 Oxygen Delivery Method Oxygen Flow Rate Sepsis Recent Fever Within 48 Hours Sepsis New/Unexplained Change in Mental Status Sepsis Action Taken by Nursing GENERAL: Patient is awake alert in no acute distress patient is resting co mfortably and showing no signs of anxiety EYES: The conjunctivae are clear. The pupils are round and reactive. EARS, NOSE, MOUTH AND THROAT: The nose is without any evidence of any deformity. Mucous membranes are moist. Tongue is midline. NECK: The neck is nontender and supple. RESPIRATORY: Shallow respirations were noted. There were diminished breath sounds noted at both lung martino. There is no tachypnea or conversational dyspnea. CARDIOVASCULAR: Tachycardic rate with regular rhythm was noted. There is no definite murmur. GASTROINTESTINAL: The abdomen is moderately distended. There is no tenderness guarding rigidity noted. MUSCULOSKELETAL/EXTREMITIES: There is no evidence of gross deformity full range of motion is noted in the hips and shoulders. SKIN: There is no obvious evidence of any rash. Pedal edema was noted bilaterally. Skin was warm and dry. There is no calf tenderness. NEUROLOGIC: Patient is awake alert and oriented x3 strength is symmetric patellar reflexes are 2+ bilaterally Course Course 1445: I discussed this case with Dr. Bush. He will reviewed the patient's findings and evaluate the patient in the emergency department for further management disposition. Administered Medications Lactated Ringer's (Lr) 1,000 mls @ 80 mls/hr IV .[id number] [id number] Stop: 11/03/19 17:21 Last Admin: 10/04/19 17:34 Dose: 80 mls/hr Documented by: [id number] Discontinued Medications Ioversol (Optiray 320 125ml) 119 ml IV ONCE PRN PRN Reason: Interaction Checking Stop: 10/08/19 13:33 Last Admin: 10/04/19 13:34 Dose: 119 ml Documented by: [id number] Medical Decision Making Differential Diagnosis Reactive airway disease, pneumonia, pneumothorax, COPD, CHF, infections, cardiac ischemia, pulmonary embolism, musculoskeletal, gastrointestinal, as well as other pathologies. Medical Records Attestation: I reviewed the patient's medical records. Home Medications Current Medication List: was personally reviewed by me Laboratory Data Attestation: I reviewed the patient's lab results. Result diagrams: 10/04/19 13:06 10/04/19 13:06 Lab Results 10/04/19 10/04/19 10/04/19 Range/Units 13:06 13:06 13:06 WBC 12.25 H (4.8-10.8) K/uL RBC 3.46 L (4.7-6.1) M/uL Hgb 10.3 L (14.0-18.0) g/dL POC Hgb (14.0-18.0) g/dl Hct 31.8 L (42-52) % POC Hct (42-52) % MCV 91.9 (80-100) fL MCH 29.8 (25-34) pg MCHC 32.4 (32-36) g/dL RDW Std Deviation 56.7 H (36.4-46.3) fL RDW Coeff of Celestino 17.1 H (11.5-14.5) % Plt Count 362 (130-400) K/uL MPV 10.2 (7.4-10.4) fL Neutrophils % (Manual) 87.7 % Lymphocytes % (Manual) 5.3 % Monocytes % (Manual) 7.0 % Neutrophils # (Manual) 10.74 H (1.4-6.5) K/uL Total Absolute Neuts 10.74 H (1.4-6.5) K/uL Lymphocytes # (Manual) 0.65 L (1.2-3.4) K/uL Total Abs Lymphocytes 0.65 L (1.2-3.4) K/uL Monocytes # (Manual) 0.86 H (0.11-0.59) K/uL Dohle Bodies 2+ PT 35.4 H (9.0-12.0) Seconds INR 3.6 H (0.9-1.1) APTT 44.6 H (21.0-31.0) Seconds PTT Ratio 1.6 POC Sodium (135-144) mmol/L Sodium 130 L (136-145) mmol/L POC Potassium (3.3-5.0) mmol/L Potassium 3.9 (3.5-5.1) mmol/L POC Chloride (101-112) mmol/L Chloride 95 L (98-107) mmol/L Carbon Dioxide 28 (21-32) mmol/L POC Total CO2 (24-31) mEq/l Anion Gap 7.0 (3-11) POC Anion Gap (16-25) mmol/L POC BUN (7-18) mg/dl BUN 20 H (7-18) mg/dl Creatinine 0.72 (0.6-1.4) mg/dl POC Creatinine (0.6-1.3) mg/dl Est Cr Clr Drug Dosing Not Reportable Est GFR ( Amer) 117.5 Est GFR (Non-Af Amer) 101.4 BUN/Creatinine Ratio 27.8 H (10-20) Glucose 102 H (70-99) mg/dl POC Glucose (other) (70-99) mg/dl Calcium 7.9 L (8.5-10.1) mg/dl POC Ioniz Calcium Yasmin (1.12-1.32) mmol/l Total Bilirubin 1.9 H (0.2-1) mg/dl AST 53 H (15-37) U/L ALT 39 (12-78) U/L Alkaline Phosphatase 135 H (45-117) U/L Troponin I < 0.015 (0-0.045) ng/ml Total Protein 6.0 L (6.4-8.2) gm/dl Albumin 1.6 L (3.4-5.0) gm/dl Globulin 4.4 H (2.5-4.0) gm/dl Albumin/Globulin Ratio 0.4 L (0.9-2) Lipase 82 (73-393) U/L Urine Color Urine Appearance (Clear) Urine pH (4.5-7.5) Ur Specific [place] (1.000-1.030) Urine Protein (Negative) Urine Glucose (UA) (Negative) Urine Ketones (Negative) Urine Blood (Negative) Urine Nitrite (Negative) Urine Bilirubin (Negative) Urine Urobilinogen (Negative) Ur Leukocyte Esterase (Negative) Urine WBC (Auto) (0-5) /hpf Urine RBC (Auto) (0-4) /hpf U Hyaline Cast (Auto) (0-5) /lpf U Epithel Cells (Auto) (0-5) /lpf Urine Bacteria (Auto) (Negative) 10/04/19 10/04/19 Range/Units 13:17 16:01 WBC (4.8-10.8) K/uL RBC (4.7-6.1) M/uL Hgb (14.0-18.0) g/dL POC Hgb 10.9 L (14.0-18.0) g/dl Hct (42-52) % POC Hct 32 L (42-52) % MCV (80-100) fL MCH (25-34) pg MCHC (32-36) g/dL RDW Std Deviation (36.4-46.3) fL RDW Coeff of Celestino (11.5-14.5) % Plt Count (130-400) K/uL MPV (7.4-10.4) fL Neutrophils % (Manual) % Lymphocytes % (Manual) % Monocytes % (Manual) % Neutrophils # (Manual) (1.4-6.5) K/uL Total Absolute Neuts (1.4-6.5) K/uL Lymphocytes # (Manual) (1.2-3.4) K/uL Total Abs Lymphocytes (1.2-3.4) K/uL Monocytes # (Manual) (0.11-0.59) K/uL Dohle Bodies PT (9.0-12.0) Seconds INR (0.9-1.1) APTT (21.0-31.0) Seconds PTT Ratio POC Sodium 128 L (135-144) mmol/L Sodium (136-145) mmol/L POC Potassium 3.9 (3.3-5.0) mmol/L Potassium (3.5-5.1) mmol/L POC Chloride 91 L (101-112) mmol/L Chloride (98-107) mmol/L Carbon Dioxide (21-32) mmol/L POC Total CO2 26 (24-31) mEq/l Anion Gap (3-11) POC Anion Gap 17.0 (16-25) mmol/L POC BUN 18 (7-18) mg/dl BUN (7-18) mg/dl Creatinine (0.6-1.4) mg/dl POC Creatinine 0.7 (0.6-1.3) mg/dl Est Cr Clr Drug Dosing Est GFR ( Amer) Est GFR (Non-Af Amer) BUN/Creatinine Ratio (10-20) Glucose (70-99) mg/dl POC Glucose (other) 105 H (70-99) mg/dl Calcium (8.5-10.1) mg/dl POC Ioniz Calcium Yasmin 1.02 L (1.12-1.32) mmol/l Total Bilirubin (0.2-1) mg/dl AST (15-37) U/L ALT (12-78) U/L Alkaline Phosphatase (45-117) U/L Troponin I (0-0.045) ng/ml Total Protein (6.4-8.2) gm/dl Albumin (3.4-5.0) gm/dl Globulin (2.5-4.0) gm/dl Albumin/Globulin Ratio (0.9-2) Lipase (73-393) U/L Urine Color Dark Yellow Urine Appearance Clear (Clear) Urine pH 6.0 (4.5-7.5) Ur Specific [place] > 1.045 H (1.000-1.030) Urine Protein 1+ H (Negative) Urine Glucose (UA) Negative (Negative) Urine Ketones Negative (Negative) Urine Blood Negative (Negative) Urine Nitrite Negative (Negative) Urine Bilirubin Negative (Negative) Urine Urobilinogen Negative (Negative) Ur Leukocyte Esterase Negative (Negative) Urine WBC (Auto) 1-5 (0-5) /hpf Urine RBC (Auto) 0-4 (0-4) /hpf U Hyaline Cast (Auto) 0 (0-5) /lpf U Epithel Cells (Auto) 0-5 (0-5) /lpf Urine Bacteria (Auto) Negative (Negative) Imaging Data Radiologist's Impression: CT abd pelvis IV con only CLINICAL HISTORY: Generalized abdominal pain. COMPARISON STUDY: September 15, 2019 TECHNIQUE: The patient was scanned in a dynamic helical fashion during intravenous administration of 119 cc of Optiray 320. A dose lowering technique was utilized adhering to the principles of ALARA. CT DOSE: FINDINGS: Lower chest: There are increasing bilateral pleural effusions with associated lower lobe airspace opacities, likely atelectatic. Liver: There is pneumobilia. There are 2 indwelling biliary enteric stents. There is a 23 mm right lobe hepatic cyst. There is left lobe hepatic biliary dilatation, and left lobe atrophy.. The left portal vein is occluded or small. Gallbladder: Contracted. Cholelithiasis. Spleen: Normal in size and attenuation. Pancreas: There is worsening interstitial pancreatitis. There are enlarging peripancreatic fluid collections. A collection anterior and superior to the pancreas located between the stomach and spleen measures 14 cm in diameter. Additional smaller collections are visualized. Adrenal glands: Unremarkable. Kidneys: No solid renal masses are visualized. There is a 31 mm right parapelvic cyst. Additional renal hypodensities are felt to represent additional cysts Bowel: There are no transition zones to indicate bowel obstruction. There is no evidence of acute diverticulitis. There is generalized bowel wall thickening likely secondary to the patient's pancreatitis. Peritoneum: There is increasing moderate ascites Vasculature: The abdominal aorta is normal in course and caliber. Adenopathy: None. Pelvic viscera: The bladder, and pelvic viscera are unremarkable. Skeletal structures: No destructive osseous lesions are seen. IMPRESSION: 1. Worsening interstitial pancreatitis with enlarging peripancreatic fluid collections. No evidence of focal pancreatic necrosis 2. No evidence of bowel obstruction. No evidence of free air 3. Diffuse bowel wall thickening likely secondary to pancreatitis 4. Increasing moderate ascites 5. Cholelithiasis 6. Indwelling biliary enteric stent. Left hepatic lobe ductal dilatation with left lobe atrophy. The findings are suspicious for a neoplastic process. 7. Increasing bilateral pleural effusions ACT 112: Negative or not required by law. Electronically signed by: Guillermo Juan M.D. 10/04/2019 2:04 PM Dictated: 10/04/19 1350 Transcribed: 10/04/[address] angio chest PE protocol CLINICAL HISTORY: 59 years-old Male presenting with atypical chest pain. TECHNIQUE: Multidetector CT angiography of the chest was performed after administration of intravenous contrast. 3-D volumetric and/or maximum intensity projection (MIP) images were subsequently reconstructed for review. IV contrast: 119 mL of Optiray 320. One or more dose lowering techniques were used consistent with the principles of ALARA (as low as reasonably achievable), including automatic exposure control, mA or kV adjustment to individual patient size, and/or use of iterative reconstruction. COMPARISON: Chest x-ray performed on 09/13/2019. CT DOSE (mGy.cm): The estimated cumulative dose is 1301.88 mGy.cm. 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 Bilateral pleural effusions. Pulmonary vasculature: The study is suboptimal for the assessment of the pulmonary vascular tree secondary to respiratory motion artifact. No filling defect within the pulmonary arteries to suggest embolus. Main pulmonary artery is not enlarged. No flattening of the interventricular septum. No intracardiac filling defect. No reflux of contrast into the hepatic veins. Remaining chest: Soft tissues: Normal thyroid and thoracic inlet. Prominent right paratracheal lymph node measuring 6 mm in short axis (series 4 image 184). Few prominent subcarinal lymph nodes may also be present. These are not pathologically enlarged by CT size criteria. Normal aorta. Normal heart size. Moderate to large bilateral simple-appearing pleural effusions. No pleural enhancement. Small pericardial effusion. Upper, or ascites noted. A biliary stent is in place within the right hepatic lobe. Pneumobilia with atrophy of the left hepatic lobe. Infiltration of the omentum. A collection is noted within the lesser sac, which may not represent simple ascites (series 4 image 1). Lungs and airways: No pneumothorax. Central airways patent. Pulmonary arteries mildly enlarged relative to adjacent bronchi. No interlobular septal thickening. Extensive passive atelectasis of the lower lobes secondary to the pleural effusion. Minimal patchy groundglass opacity with a dependent basilar predominan ce. This is not primarily peripheral or focal. Musculoskeletal: Degenerative changes of the spine. IMPRESSION: 1. No evidence of pulmonary embolus. 2. Findings suggest mild volume overload with possible trace pulmonary edema. An atypical infectious etiology is not favored. 3. Moderate to large bilateral pleural effusions with extensive basilar atelectasis. 4. Upper abdominal ascites, which is slightly increased from prior CT abdomen pelvis from 09/15/2019. 5. Biliary stent with expected pneumobilia and chronic left hepatic lobe atrophy. Underlying previously suspected malignancy not well demonstrated. 6. Suspected collection in the lesser sac. Please see separately dictated CT of the abdomen and pelvis. ACT 112: Negative or not required by law. Electronically signed by: Rickie Sandoval M.D. 10/04/2019 1:56 PM Dictated: 10/04/19 1346 Transcribed: 10/04/19 1346 ECG Data Attestation: I personally reviewed and interpreted this ECG as follows: Indication: + chest pain Rate (beats per minute): 106 Additional Comments: EKG was obtained in the emergency department. My interpretation is sinus tachycardia 106 bpm. There was no ectopy. Low voltage was noted. There is no acute ST segment abnormalities noted. There was no significant change compared to September 13, 2019. Blood Pressure Blood Pressure Findings: Elevated blood pressure Blood Pressure Disposition: further management by hospitalist KORY Garces The patient is a 59-year-old male who presented to the emergency department for an evaluation of difficulty breathing. The patient complained of difficulty breathing and abdominal distention. The patient was recently diagnosed with biliary obstruction. He also had pancreatitis at that time. He was transferred to [facility] as well as [facility] for further work- up. The patient has developed worsening ascites as well as pleural effusions. I discussed the patient's laboratory and radiographic studies with him. There is a possibility of hepatic neoplasm given the CT. This may explain the patient's obstructive symptoms. The patient was placed on supplemental oxygen. He was feeling much better on subsequent reevaluation. I discussed this case with the on-call [facility] [address] hospitalist. They have agreed to evaluate the patient in the emergency department for further management and disposition. Impression & Plan Hypoxia, Chest pain, Acute dyspnea, Pleural effusion, Abdominal ascites, Coagulopathy Discharge Plan Visit Data *Final* Discharge Date/Time: 10/04/19 17:05 Chief Complaint: Shortness of Breath/Dyspnea Stated Complaint: SOB, FLUID IN LUNGS ED Provider: Yao Calle Discharge Problem: Hypoxia, Chest pain, Acute dyspnea, Pleural effusion, Abdominal ascites, Coagulopathy Patient Disposition: Admitted As Inpatient Condition: Good Discharge Instructions Interventions: ED Discharge Assessment Last Done: 10/04/19 17:05 Discharge Problem: Chest pain Qualifiers: Chest pain type: unspecified Qualified Code(s): R07.9 - Chest pain, unspecified Abdominal ascites Qualifiers: Ascites type: other type Qualified Code(s): R18.8 - Other ascites
[2019-10-04 13:13] LABS: Hematocrit (blood only) 31.8 % (42-52); Hemoglobin 10.3 g/dL (14.0-18.0); Mean Corpuscular Hemoglobin 29.8 pg (25-34); Mean Corpuscular Hgb Conc 32.4 g/dL (32-36); Mean Corpuscular Volume 91.9 fL (80-100); Mean Platelet Volume 10.2 fL (7.4-10.4); Platelet Count 362 K/uL (130-400); RDW Coefficient of Variation 17.1 % (11.5-14.5); RDW Standard Deviation 56.7 fL (36.4-46.3); Red Blood Count 3.46 M/uL (4.7-6.1); White Blood Count 12.25 K/uL (4.8-10.8)
[2019-10-04 13:29] LABS: iSTAT Creatinine 0.7 mg/dl (0.6-1.3); iSTAT Hemoglobin 10.9 g/dl (14.0-18.0); iSTAT Ionized Calcium 1.02 mmol/l (1.12-1.32); iSTAT Potassium 3.9 mmol/L (3.3-5.0)
[2019-10-04 13:30] LABS: Alanine Aminotransferase 39 U/L (12-78); Albumin Level 1.6 gm/dl (3.4-5.0); Aspartate Aminotransferase 53 U/L (15-37); BUN Creatinine Ratio 27.8 (10-20); Blood Urea Nitrogen 20 mg/dl (7-18); Calcium 7.9 mg/dl (8.5-10.1); Carbon Dioxide 28 mmol/L (21-32); Chloride 95 mmol/L (98-107); Est GFR (African American) 117.5; Est GFR (Non-African American) 101.4; Glucose 102 mg/dl (70-99); Lipase 82 U/L (73-393); Potassium 3.9 mmol/L (3.5-5.1); Sodium 130 mmol/L (136-145)
[2019-10-04 13:33] LABS: INR 3.6 (0.9-1.1); Partial Thromboplastin Ratio 1.6; Partial Thromboplastin Time 44.6 Seconds (21.0-31.0); Prothrombin Time 35.4 Seconds (9.0-12.0)
[2019-10-04 13:34] LABS: ALC (manual) 0.65 K/uL (1.2-3.4); ANC (manual) 10.74 K/uL (1.4-6.5); Dohle Bodies 2+; Lymphocytes # (manual) 0.65 K/uL (1.2-3.4); Lymphocytes % (manual) 5.3 %; Monocytes # (manual) 0.86 K/uL (0.11-0.59); Neutrophils # (manual) 10.74 K/uL (1.4-6.5); Neutrophils % (manual) 87.7 %
[2019-10-04] MEDS ORDERED: OPTIRAY 320 125ml IV PRN (13:34)
[2019-10-04 13:35] LABS: Albumin Globulin Ratio 0.4 (0.9-2); Alkaline Phosphatase 135 U/L (45-117); Bilirubin,Total 1.9 mg/dl (0.2-1); Globulin 4.4 gm/dl (2.5-4.0); Troponin I < 0.015 ng/ml (0-0.045)
--- NOTE | 2019-10-04 13:57 | CT Scan Report ---
CT angio chest PE protocol CLINICAL HISTORY: 59 years-old Male presenting with atypical chest pain. TECHNIQUE: Multidetector CT angiography of the chest was performed after administration of intravenou s contrast. 3-D volumetric and/or maximum intensity projection (MIP) images were subsequently reconst ructed for review. IV contrast: 119 mL of Optiray 320. One or more dose lowering techniques were used consistent with the principles of ALARA (as low as reasonably achievable), including automatic expos ure control, mA or kV adjustment to individual patient size, and/or use of iterative reconstruction. COMPARISON: Chest x-ray performed on 09/13/2019. CT DOSE (mGy.cm): The estimated cumulative dose is 1301.88 mGy.cm. FINDINGS: Obgyn Nurse topogram: Vasectomy clips noted. Bilateral pleural effusions. Pulmonary vasculature: The study is suboptimal for the assessment of the pulmonary vascular tree secondary to respiratory mo tion artifact. No filling defect within the pulmonary arteries to suggest embolus. Main pulmonary art jeremiah is not enlarged. No flattening of the interventricular septum. No intracardiac filling defect. No reflux of contrast into the hepatic veins. Remaining chest: Soft tissues: Normal thyroid and thoracic inlet. Prominent right paratracheal lymph node measuring 6 mm in short axis (series 4 image 184). Few prominent subcarinal lymph nodes may also be present. Thes e are not pathologically enlarged by CT size criteria. Normal aorta. Normal heart size. Moderate to l arge bilateral simple-appearing pleural effusions. No pleural enhancement. Small pericardial effusion . Upper, or ascites noted. A biliary stent is in place within the right hepatic lobe. Pneumobilia wit h atrophy of the left hepatic lobe. Infiltration of the omentum. A collection is noted within the les ser sac, which may not represent simple ascites (series 4 image 1). Lungs and airways: No pneumothorax. Central airways patent. Pulmonary arteries mildly enlarged relati ve to adjacent bronchi. No interlobular septal thickening. Extensive passive atelectasis of the lower lobes secondary to the pleural effusion. Minimal patchy groundglass opacity with a dependent basilar predominance. This is not primarily peripheral or focal. Musculoskeletal: Degenerative changes of the spine. IMPRESSION: 1. No evidence of pulmonary embolus. 2. Findings suggest mild volume overload with possible trace pulmonary edema. An atypical infectious etiology is not favored. 3. Moderate to large bilateral pleural effusions with extensive basilar atelectasis. 4. Upper abdominal ascites, which is slightly increased from prior CT abdomen pelvis from 09/15/2019. 5. Biliary stent with expected pneumobilia and chronic left hepatic lobe atrophy. Underlying previou sly suspected malignancy not well demonstrated. 6. Suspected collection in the lesser sac. Please see separately dictated CT of the abdomen and pelv is. ACT 112: Negative or not required by law. Electronically signed by: Rickie Sandoval M.D. 10/04/2019 1:56 PM
--- NOTE | 2019-10-04 14:05 | CT Scan Report ---
CT abd pelvis IV con only CLINICAL HISTORY: Generalized abdominal pain. COMPARISON STUDY: September 15, 2019 TECHNIQUE: The patient was scanned in a dynamic helical fashion during intravenous administration of 119 cc of Optiray 320. A dose lowering technique was utilized adhering to the principles of ALARA. CT DOSE: FINDINGS: Lower chest: There are increasing bilateral pleural effusions with associated lower lobe airspace opa cities, likely atelectatic. Liver: There is pneumobilia. There are 2 indwelling biliary enteric stents. There is a 23 mm right lo be hepatic cyst. There is left lobe hepatic biliary dilatation, and left lobe atrophy.. The left port al vein is occluded or small. Gallbladder: Contracted. Cholelithiasis. Spleen: Normal in size and attenuation. Pancreas: There is worsening interstitial pancreatitis. There are enlarging peripancreatic fluid rehan ections. A collection anterior and superior to the pancreas located between the stomach and spleen me asures 14 cm in diameter. Additional smaller collections are visualized. Adrenal glands: Unremarkable. Kidneys: No solid renal masses are visualized. There is a 31 mm right parapelvic cyst. Additional francy al hypodensities are felt to represent additional cysts Bowel: There are no transition zones to indicate bowel obstruction. There is no evidence of acute div erticulitis. There is generalized bowel wall thickening likely secondary to the patient's pancreatiti s. Peritoneum: There is increasing moderate ascites Vasculature: The abdominal aorta is normal in course and caliber. Adenopathy: None. Pelvic viscera: The bladder, and pelvic viscera are unremarkable. Skeletal structures: No destructive osseous lesions are seen. IMPRESSION: 1. Worsening interstitial pancreatitis with enlarging peripancreatic fluid collections. No evidence o f focal pancreatic necrosis 2. No evidence of bowel obstruction. No evidence of free air 3. Diffuse bowel wall thickening likely secondary to pancreatitis 4. Increasing moderate ascites 5. Cholelithiasis 6. Indwelling biliary enteric stent. Left hepatic lobe ductal dilatation with left lobe atrophy. The findings are suspicious for a neoplastic process. 7. Increasing bilateral pleural effusions ACT 112: Negative or not required by law. Electronically signed by: Guillermo Juan M.D. 10/04/2019 2:04 PM
--- NOTE | 2019-10-04 14:55 | Electrocardiogram Report ---
Test Reason : Blood Pressure : / mmHG Vent. Rate : 106 BPM Atrial Rate : 106 BPM P-R Int : 146 ms QRS Dur : 068 ms QT Int : 324 ms P-R-T Axes : 041 014 -02 degrees QTc Int : 430 ms Sinus tachycardia Possible Left atrial enlargement Low voltage QRS Borderline ECG When compared with ECG of 13-SEP-2019 17:46, Vent. rate has increased BY 36 BPM Incomplete right bundle branch block is no longer Present Confirmed by Yao Macedo ([id number]) on 10/04/2019 2:54:44 PM Referred By: Confirmed By:Yao Macedo
[2019-10-04 16:14] LABS: Appearance Urine Clear (Clear); Blood Urine Negative (Negative); Color Urine Dark Yellow; Glucose Urine UA Negative (Negative); Ketones Urine Negative (Negative); Leukocyte Esterase Urine Negative (Negative); Nitrite Urine Negative (Negative); Protein Urine 1+ (Negative); Specific Gravity Urine > 1.045 (1.000-1.030); Urobilinogen Urine Negative (Negative)
[2019-10-04 16:18] LABS: Bilirubin Urine Negative (Negative); Ictotest Urine Negative (Negative)
[2019-10-04 16:34] LABS: Epithelial Cell Urine Auto 0-5 /lpf (0-5); RBC Urine Automated 0-4 /hpf (0-4)
[2019-10-04 16:35] LABS: Bacteria Urine Automated Negative (Negative); Cast Urine Automated 0 /lpf (0-5)
[2019-10-04] MEDS ORDERED: ONDANSETRON INJ 2 MG/ML 2 ML VIAL IV PRN (17:22)
--- NOTE | 2019-10-04 17:26 | History & Physical Report ---
Date of Service October 04, 2019 Assessment & Plan (1) Acute pancreatitis: evidence of pancreatitis on CT and epigastric pain, no nausea will allow bowel rest, strict NPO except meds LR at 80cc/hr, typically would be more aggressive with IV fluids but he has ascites and pleural effusions repeat CMP, lipase in the morning consult GI to see (2) Coagulopathy: unclear etiology platelets and Hb are stable, no signs of bleeding no infection that would make you suspect sepsis/DIC picture if it were all the liver, then would expect bili and transaminases to be higher could be lack of absorption of fat soluble vitamins? will give vitamin K IV and look for some improvement repeat in the morning (3) Abdominal ascites: certainly this is most likely due to recent pancreatitis unsure there is enough fluid to tap, might try for diagnostic tap for the liver mass? currently it is contraindicated with the coagulopathy, can wait until Monday if it needs to be done (4) Pleural effusion: as above, could consider thoracentesis but need to improve clotting factors first non-emergent (5) Acute dyspnea: due to pleural effusions and compressive atelectasis lungs clear on exam CT chest shows no PE, no infiltrates to suggest viral or bacterial pneumonia (6) Liver mass: ultimately plans for liver biopsy in November 2019 at [place] Admission and Anticipated Discharge Date Admission Date: October 04, 2019 History of Present Illness Chief Complaint: My abdomen hurts Primary Care Provider: Rickie Alejo MD 59 yo male who was relatively healthy with just a history of hypertension up until a few weeks ago. He developed signs and symptoms of biliary obstruction and there were concerns on imaging for a tumor of the biliary system such as a cholangiocarcinoma. He was transferred to [facility] and had ERCP with stents in the biliary system and brushings taken for biopsy, this was on 09/13/19. He returned to [facility] after having the procedure due to complaints of severe abdominal pain. He was found to have evidence of pancreatitis as a result of the ERCP. He could not be transferred to [place] at that time due to lack of beds and he was transferred to [place] instead. From their discharge summary he was treated for pancreatitis and by all accounts he improved over the course of a few weeks. He was also found to have C diff colitis and was treated appropriately and improved. He was discharged to home on 09/26 and he says that at that time he was eating, had little to no abdominal pain, no jaundice, no fevers. He received some Lasix while still hospitalized due to volume overload with treatment of the pancreatitis. He diureses well, was breathing better, could ambulate in his room without oxygen. He had a follow up with Dr. Alejo over the phone on 10/02/19 and at that time he was still doing reasonably well. Over the past two days he started to have increasing epigastric, LUQ and RUQ pain, but most predominant on the left side. He does not have an appetite. No nausea or vomiting and he has moved his bowels. He is trying to drink fluids, had about 60oz of fluids yesterday. He admits that he is making less urine. In the ED his CT shows signs of pancreatitis, no evidence of necrosis, no pseudocyst formation. His lipase is 82. LFT are minimally elevated. Interestingly, his PT and PTT are elevated without any anticoagulation, this is a new finding compared to prior lab results. His WBC is 12k but it was 16k when he was discharged on 09/26 and it was as high as 30k when he was last at this hospital. BUN and Cr are at baseline. CT of the chest shows that his lungs are clear, he does have moderate to large bilateral pleural effusions that have been described on prior exams. He admits that he feels short of breath but not in any distress. I discussed the case with Sona THOMAS prior to admission, will keep him NPO, give gentle fluids, try to reverse INR and PTT. He is supposed to have a biopsy of a possible left liver lobe lesion in November 2019 at [place]. Allergies Allergy/AdvReac Type Severity Reaction Status Date / Time No Known Allergies Allergy Unverified 10/04/19 13:44 Home Medications Home Medications Medication Instructions Recorded Confirmed Type metoprolol tartrate 50 mg tablet 50 mg PO BID #60 tab 10/02/19 10/04/19 Rx acetaminophen [Tylenol Extra 0 mg PO Q6H PRN 10/04/19 10/04/19 History Strength] atorvastatin 40 mg PO QAM 10/04/19 10/04/19 History potassium chloride 10 meq PO QAM 10/04/19 10/04/19 History Past Med/Surg History Medical History Carpal tunnel syndrome on both sides Dyslipidemia (Chronic) Hip pain Hypertension (Chronic) Impaired fasting glucose (Chronic) Liver mass Surgical History [place] teeth removed Family History Father Lung cancer Denies family history of Ovarian cancer Prostate cancer Breast cancer Colorectal cancer Social History Preferred Language: Thai Communication Ability: Effective Visual Impairment: No Limitations Hearing Ability: Normal Balance And Hairspring Assembler Required: No Beliefs That Will Affect Care: None marital status: Single Current Living Situation: Alone current occupational status: employed 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 Feels Safe at Home: Yes Smoking Status: Never smoker Hx Alcohol Use: Yes Alcohol type: beer and hard liquor Alcohol Intake Frequency Comment: 1 beer every other day, none x2-3 weeks Hx Substance Use: No Childhood Exposure to Second-Hand Smoke: Yes Diet Comment: regular caffeine: Yes (very little) during the past year weight has: remained stable Dental Care, Regularly: Yes Physical Activity Frequency: Daily Seatbelt Use: always Sunscreen Use: No Review of Systems Review of Systems: All systems reviewed & are unremarkable except as noted in HPI & below Physical Exam Constitutional: + ill appearing, + frail appearing and + malnourished; no acute distress Eyes: PERRL, conjunctivae normal, anicteric sclerae ENMT: external ear and nose normal, oropharynx normal Neck: trachea midline, no thyromegaly Respiratory: + labored breathing (intermittently, can talk in complete sentences) Auscultation: + breath sounds absent (in bases bilaterally); no rales, no rhonchi and no wheezes Cardiovascular: Rate/Rhythm: regular rhythm and + tachycardic Heart Sounds: normal S1 and normal S2; no murmur Extremities: normal capillary refill; no edema Gastrointestinal (Abdomen): Inspection/Auscultation: + abdomen distended and normal bowel sounds Percussion/Palpation: + abdomen tender (epigastric, LUQ) and + ascites; no guarding and abdomen not rigid Musculoskeletal: no cyanosis or clubbing, extremities motor strength 5/5 Skin: no rashes, warm and dry Neurologic: patellar DTR's 2+ bilat, sensation intact and PERRL, EOMI, accommodation nl, no face palsy, no dysarthria Psychiatric: A+Ox3, euthymic affect Lymphatic: no cervical or axillary lymphadenopathy Results & Data Results & Data ([facility]) Vital Signs (Past 12 Hours) Vital Signs Temp Pulse Resp BP Pulse Ox 10/04/19 17:01 107 H 28 H 94 10/04/19 17:00 111 H 28 H 132/94 94 10/04/19 16:30 109 H 29 H 129/92 95 10/04/19 16:00 109 H 28 H 139/91 95 10/04/19 15:30 141/89 H 95 10/04/19 15:00 137/93 96 10/04/19 14:30 113 H 156/93 H 96 10/04/19 14:00 109 H 25 H 135/90 95 10/04/19 13:06 110 H 23 136/90 95 10/04/19 13:00 89 L 10/04/19 12:27 37.2 C 121 H 20 136/88 89 L Laboratory Results Laboratory Results - last 24 hr 10/04/19 10/04/19 10/04/19 13:06 13:06 13:06 WBC 12.25 H RBC 3.46 L Hgb 10.3 L POC Hgb Hct 31.8 L POC Hct MCV 91.9 MCH 29.8 MCHC 32.4 RDW Std Deviation 56.7 H RDW Coeff of Celestino 17.1 H Plt Count 362 MPV 10.2 Neutrophils % (Manual) 87.7 Lymphocytes % (Manual) 5.3 Monocytes % (Manual) 7.0 Neutrophils # (Manual) 10.74 H Total Absolute Neuts 10.74 H Lymphocytes # (Manual) 0.65 L Total Abs Lymphocytes 0.65 L Monocytes # (Manual) 0.86 H Dohle Bodies 2+ PT 35.4 H INR 3.6 H APTT 44.6 H PTT Ratio 1.6 POC Sodium Sodium 130 L POC Potassium Potassium 3.9 POC Chloride Chloride 95 L Carbon Dioxide 28 POC Total CO2 Anion Gap 7.0 POC Anion Gap POC BUN BUN 20 H Creatinine 0.72 POC Creatinine Est Cr Clr Drug Dosing Not Reportable Est GFR ( Amer) 117.5 Est GFR (Non-Af Amer) 101.4 BUN/Creatinine Ratio 27.8 H Glucose 102 H POC Glucose (other) Calcium 7.9 L POC Ioniz Calcium Yasmin Total Bilirubin 1.9 H AST 53 H ALT 39 Alkaline Phosphatase 135 H Troponin I < 0.015 Total Protein 6.0 L Albumin 1.6 L Globulin 4.4 H Albumin/Globulin Ratio 0.4 L Lipase 82 Urine Color Urine Appearance Urine pH Ur Specific [place] Urine Protein Urine Glucose (UA) Urine Ketones Urine Blood Urine Nitrite Urine Bilirubin Urine Urobilinogen Ur Leukocyte Esterase Urine WBC (Auto) Urine RBC (Auto) U Hyaline Cast (Auto) U Epithel Cells (Auto) Urine Bacteria (Auto) 10/04/19 10/04/19 13:17 16:01 WBC RBC Hgb POC Hgb 10.9 L Hct POC Hct 32 L MCV MCH MCHC RDW Std Deviation RDW Coeff of [place] Plt Count MPV Neutrophils % (Manual) Lymphocytes % (Manual) Monocytes % (Manual) Neutrophils # (Manual) Total Absolute Neuts Lymphocytes # (Manual) Total Abs Lymphocytes Monocytes # (Manual) Dohle Bodies PT INR APTT PTT Ratio POC Sodium 128 L Sodium POC Potassium 3.9 Potassium POC Chloride 91 L Chloride Carbon Dioxide POC Total CO2 26 Anion Gap POC Anion Gap 17.0 POC BUN 18 BUN Creatinine POC Creatinine 0.7 Est Cr Clr Drug Dosing Est GFR ( Amer) Est GFR (Non-Af Amer) BUN/Creatinine Ratio Glucose POC Glucose (other) 105 H Calcium POC Ioniz Calcium Yasmin 1.02 L Total Bilirubin AST ALT Alkaline Phosphatase Troponin I Total Protein Albumin Globulin Albumin/Globulin Ratio Lipase Urine Color Dark Yellow Urine Appearance Clear Urine pH 6.0 Ur Specific [place] > 1.045 H Urine Protein 1+ H Urine Glucose (UA) Negative Urine Ketones Negative Urine Blood Negative Urine Nitrite Negative Urine Bilirubin Negative Urine Urobilinogen Negative Ur Leukocyte Esterase Negative Urine WBC (Auto) 1-5 Urine RBC (Auto) 0-4 U Hyaline Cast (Auto) 0 U Epithel Cells (Auto) 0-5 Urine Bacteria (Auto) Negative Diagnostic Findings CTA chest IMPRESSION: 1. No evidence of pulmonary embolus. 2. Findings suggest mild volume overload with possible trace pulmonary edema. An atypical infectious etiology is not favored. 3. Moderate to large bilateral pleural effusions with extensive basilar atelectasis. 4. Upper abdominal ascites, which is slightly increased from prior CT abdomen pelvis from 09/15/2019. 5. Biliary stent with expected pneumobilia and chronic left hepatic lobe atrophy. Underlying previously suspected malignancy not well demonstrated. 6. Suspected collection in the lesser sac. Please see separately dictated CT of the abdomen and pelvis. CT abdomen/pelvis IMPRESSION: 1. Worsening interstitial pancreatitis with enlarging peripancreatic fluid collections. No evidence of focal pancreatic necrosis 2. No evidence of bowel obstruction. No evidence of free air 3. Diffuse bowel wall thickening likely secondary to pancreatitis 4. Increasing moderate ascites 5. Cholelithiasis 6. Indwelling biliary enteric stent. Left hepatic lobe ductal dilatation with left lobe atrophy. The findings are suspicious for a neoplastic process. 7. Increasing bilateral pleural effusions Medications Administered Current Inpatient Medications Hydromorphone HCl (Dilaudid) 0.5 mg IV Q6 PRN PRN Reason: Pain Stop: 10/18/19 17:23 Lactated Ringer's (Lr) 1,000 mls @ 80 mls/hr IV .[id number] [facility] Stop: 11/03/19 17:21 Last Admin: 10/04/19 17:34 Dose: 80 mls/hr Documented by: Phytonadione 5 mg/ Sodium (Chloride) 50.5 mls @ 101 mls/hr IV TODAY@1730 ONE Stop: 10/04/19 17:59 Metoprolol Tartrate (Lopressor) 50 mg PO BID [facility] Stop: 11/03/19 20:59 Miscellaneous (Patient's Height And/Or Weight Needed) 1 ea N/A Q2H [facility] Stop: 11/03/19 17:44 Ondansetron HCl (Zofran) 4 mg IV Q6H PRN PRN Reason: Nausea Stop: 11/03/19 17:21 Code Status & VTE Plan VTE Prophylaxis Plan VTE Prophylaxis will be ordered: No PG Care Time/CCT Total # of Minutes Spent Total Time Spent with Patient: Total time spent is greater than 50% in coordination of care (as documented) at patient's floor/unit and/or counseling patient: Coding Level of Care Code 72688 Initial Inpt Care Lvl 3 Diagnoses Acute pancreatitis K85.80 Acute pancreatitis complication: unspecified Pancreatitis type: other Coagulopathy D68.9 Abdominal ascites R18.8 Ascites type: other type Pleural effusion J90 Acute dyspnea R06.00 Liver mass R16.0 (1) Acute pancreatitis Acute pancreatitis complication: unspecified Pancreatitis type: other Qualified Code(s): K85.80 - Other acute pancreatitis without necrosis or infection (2) Abdominal ascites Ascites type: other type Qualified Code(s): R18.8 - Other ascites
[2019-10-04] MEDS ORDERED: PHYTONADIONE 5 MG in SODIUM CHLORIDE 0.9% 50 ML IV ONE (17:30)
[2019-10-04] MEDS: LACTATED RINGER'S 1,000 ML IV SCH (17:34)
[2019-10-04] MEDS ORDERED: PATIENT'S HEIGHT AND/OR WEIGHT NEEDED SCH (17:45)
[2019-10-04] MEDS ORDERED: CALCIUM CARBONATE 500 MG CHEWABLE TAB PO PRN (18:50)
[2019-10-04] MEDS ORDERED: PANTOprazole 40 MG TAB PO ONE (19:00)
[2019-10-04] MEDS: METOPROLOL TARTRATE 50 MG TAB PO SCH (20:27)
[2019-10-04] MEDS: HYDROmorphone INJ 0.5 MG/0.5 ML SYR IV PRN (22:14)
[2019-10-05] MEDS: LACTATED RINGER'S 1,000 ML IV SCH ×2 (06:11→19:06)
[2019-10-05] MEDS: HYDROmorphone INJ 0.5 MG/0.5 ML SYR IV PRN (06:13)
[2019-10-05 07:38] LABS: Hematocrit (blood only) 31.7 % (42-52); Mean Corpuscular Hemoglobin 29.1 pg (25-34); Mean Corpuscular Hgb Conc 31.5 g/dL (32-36); Mean Corpuscular Volume 92.2 fL (80-100); Mean Platelet Volume 10.3 fL (7.4-10.4); Nucleated RBC # (auto) 0.04 K/uL (0-0); Nucleated RBC % (auto) 0.3 %; Platelet Count 384 K/uL (130-400); RDW Coefficient of Variation 17.2 % (11.5-14.5); RDW Standard Deviation 56.8 fL (36.4-46.3); Red Blood Count 3.44 M/uL (4.7-6.1); White Blood Count 13.47 K/uL (4.8-10.8)
[2019-10-05] MEDS ORDERED: HYDROmorphone INJ 1 MG/ML SYRINGE IV STA (07:45)
[2019-10-05 07:47] LABS: INR 1.4 (0.9-1.1); Partial Thromboplastin Ratio 1.4; Partial Thromboplastin Time 38.9 Seconds (21.0-31.0)
[2019-10-05] MEDS ORDERED: HYDROmorphone INJ 1 MG/ML SYRINGE ONE (07:49)
[2019-10-05] MEDS: METOPROLOL TARTRATE 50 MG TAB PO SCH ×2 (07:59→20:17)
[2019-10-05 08:06] LABS: Albumin Level 1.5 gm/dl (3.4-5.0); BUN Creatinine Ratio 33.9 (10-20); Calcium 8.2 mg/dl (8.5-10.1); Creatinine Clr Calc Pharmacy 122.4 ml/min; Est GFR (African American) 126.7; Est GFR (Non-African American) 109.3
[2019-10-05 08:07] LABS: Basophils # (auto) 0.02 K/uL (0-0.2); Basophils % (auto) 0.1 %; Dohle Bodies 1+; Echinocytes 1+; Eosinophils # (auto) 0.02 K/uL (0-0.5); Eosinophils % (auto) 0.1 %; Immature Granulocytes # (auto) 0.21 K/uL (0.00-0.02); Immature Granulocytes % (auto) 1.6 %; Lymphocytes # (auto) 1.05 K/uL (1.2-3.4); Lymphocytes % (auto) 7.8 %; Monocytes # (auto) 1.21 K/uL (0.11-0.59); Neutrophils # (auto) 10.96 K/uL (1.4-6.5); Neutrophils % (auto) 81.4 %; Toxic Granulation 1+
[2019-10-05 08:09] LABS: Albumin Globulin Ratio 0.3 (0.9-2); Bilirubin,Total 1.7 mg/dl (0.2-1); Globulin 4.4 gm/dl (2.5-4.0); Total Protein 5.9 gm/dl (6.4-8.2)
--- NOTE | 2019-10-05 11:12 | Hospitalist Progress Note ---
Date of Service October 05, 2019 Assessment & Plan (1) Acute pancreatitis: evidence of pancreatitis on CT and epigastric pain, no nausea will allow bowel rest, strict NPO except meds LR at 80cc/hr, typically would be more aggressive with IV fluids but he has ascites and pleural effusions no complications such as necrosis or pseudocyst seen on CT with increased pain today, increase Dilaudid to 1mg IV q3 PRN awaiting GI consult (2) Coagulopathy: unclear etiology platelets and Hb are stable, no signs of bleeding no infection that would make you suspect sepsis/DIC picture if it were all the liver, then would expect bili and transaminases to be higher could be lack of absorption of fat soluble vitamins? he admits that for the past two weeks whatever he eats "goes right through him" responded well to Vitamin K 5mg IV, INR down to 1.4 from 3.4, PTT down slightly will monitor daily (3) Abdominal ascites: certainly this is most likely due to recent pancreatitis unsure there is enough fluid to tap, might try for diagnostic tap for the liver mass? currently it is contraindicated with the coagulopathy, can wait until Monday if it needs to be done (4) Pleural effusion: as above, could consider thoracentesis but need to improve clotting factors first non-emergent will discuss with pulmonary to get their opinion (5) Acute dyspnea: due to pleural effusions and compressive atelectasis lungs clear on exam CT chest shows no PE, no infiltrates to suggest viral or bacterial pneumonia (6) Liver mass: ultimately plans for liver biopsy in November 2019 at [facility] tested negative for hepatitis C unsure if he had Alpha fetaprotein tested, defer to GI since they would have records from [facility] Admission and Anticipated Discharge Date Admission Date: October 04, 2019 Subjective patient with increased pain this morning, relieved with Dilaudid 1mg IV he is tachycardic and slightly tachypneic but not in any distress reviewed his labs, WBC slightly up at 13k, Hb 10, plts 384 INR down to 1.4 from 3.4 after Vitamin K, PTT only down slightly at 38.9 Na up to 134, K 4.0, BUN stable at 20 and Cr is 0.6 Bili down slightly at 1.7, AST, ALT, and alk phos stable, lipase 133 will discuss with gastroenterology updated patient's sister over the phone Review of Systems Review of Systems: All systems reviewed & are unremarkable except as noted in HPI & below Constitutional: no fever, no chills, no sweats, no fatigue and no weakness Respiratory: + dyspnea; no cough Cardiovascular: no chest pain, no palpitations, no syncope and no edema Gastrointestinal: + abdominal pain and + diarrhea/loose stools; no nausea, no vomiting and no constipation Genitourinary: + decreased urination Integumentary: no yellowing of the skin Physical Exam Constitutional: well developed and + malnourished; no acute distress Eyes: PERRL, conjunctivae normal, anicteric sclerae ENMT: external ear and nose normal, oropharynx normal Neck: trachea midline, no thyromegaly Respiratory: + labored breathing (intermittently, can talk in complete sentences) Auscultation: + breath sounds absent (in bases bilaterally); no rales, no rhonchi and no wheezes Cardiovascular: Rate/Rhythm: regular rhythm and + tachycardic Heart Sounds: normal S1 and normal S2; no murmur Extremities: normal capillary refill; no edema Gastrointestinal (Abdomen): Inspection/Auscultation: + abdomen distended and normal bowel sounds Percussion/Palpation: + abdomen tender (epigastric, LUQ) and + ascites; no guarding and abdomen not rigid Musculoskeletal: no cyanosis or clubbing, extremities motor strength 5/5 Skin: no rashes, warm and dry Neurologic: patellar DTR's 2+ bilat, sensation intact and PERRL, EOMI, accommodation nl, no face palsy, no dysarthria Psychiatric: A+Ox3, euthymic affect Lymphatic: no cervical or axillary lymphadenopathy Results & Data Results & Data ([facility]) Vital Signs (Past 12 Hours) Vital Signs Temp Pulse Pulse Resp BP Pulse Ox 10/05/19 07:22 108 H 10/05/19 07:04 36.9 C 117 H 16 144/98 H 91 10/05/19 04:48 36.9 C 107 H 21 145/87 H 93 10/05/19 03:26 109 H Laboratory Results Laboratory Results - last 24 hr 10/04/19 10/04/19 10/04/19 13:06 13:06 13:06 WBC 12.25 H RBC 3.46 L Hgb 10.3 L POC Hgb Hct 31.8 L POC Hct MCV 91.9 MCH 29.8 MCHC 32.4 RDW Std Deviation 56.7 H RDW Coeff of Celestino 17.1 H Plt Count 362 MPV 10.2 Immature Gran % (Auto) Neut % (Auto) Lymph % (Auto) Maury % (Auto) Eos % (Auto) Baso % (Auto) Immature Gran # (Auto) Neut # (Auto) Lymph # (Auto) Maury # (Auto) Eos # (Auto) Baso # (Auto) Absolute Nucleated RBC Nucleated RBC % (auto) Neutrophils % (Manual) 87.7 Lymphocytes % (Manual) 5.3 Monocytes % (Manual) 7.0 Neutrophils # (Manual) 10.74 H Total Absolute Neuts 10.74 H Lymphocytes # (Manual) 0.65 L Total Abs Lymphocytes 0.65 L Monocytes # (Manual) 0.86 H Toxic Granulation Dohle Bodies 2+ Echinocytes PT 35.4 H INR 3.6 H APTT 44.6 H PTT Ratio 1.6 POC Sodium Sodium 130 L POC Potassium Potassium 3.9 POC Chloride Chloride 95 L Carbon Dioxide 28 POC Total CO2 Anion Gap 7.0 POC Anion Gap POC BUN BUN 20 H Creatinine 0.72 POC Creatinine Est Cr Clr Drug Dosing Not Reportable Est GFR ( Amer) 117.5 Est GFR (Non-Af Amer) 101.4 BUN/Creatinine Ratio 27.8 H Glucose 102 H POC Glucose (other) Calcium 7.9 L POC Ioniz Calcium Yasmin Total Bilirubin 1.9 H AST 53 H ALT 39 Alkaline Phosphatase 135 H Troponin I < 0.015 Total Protein 6.0 L Albumin 1.6 L Globulin 4.4 H Albumin/Globulin Ratio 0.4 L Lipase 82 Urine Color Urine Appearance Urine pH Ur Specific [place] Urine Protein Urine Glucose (UA) Urine Ketones Urine Blood Urine Nitrite Urine Bilirubin Urine Urobilinogen Ur Leukocyte Esterase Urine WBC (Auto) Urine RBC (Auto) U Hyaline Cast (Auto) U Epithel Cells (Auto) Urine Bacteria (Auto) 10/04/19 10/04/19 10/05/19 13:17 16:01 07:23 WBC 13.47 H RBC 3.44 L Hgb 10.0 L POC Hgb 10.9 L Hct 31.7 L POC Hct 32 L MCV 92.2 MCH 29.1 MCHC 31.5 L RDW Std Deviation 56.8 H RDW Coeff of [place]est[place] 17.2 H Plt Count 384 MPV 10.3 Immature Gran % (Auto) 1.6 Neut % (Auto) 81.4 Lymph % (Auto) 7.8 Maury % (Auto) 9.0 Eos % (Auto) 0.1 Baso % (Auto) 0.1 Immature Gran # (Auto) 0.21 H Neut # (Auto) 10.96 H Lymph # (Auto) 1.05 L Maury # (Auto) 1.21 H Eos # (Auto) 0.02 Baso # (Auto) 0.02 Absolute Nucleated RBC 0.04 H Nucleated RBC % (auto) 0.3 Neutrophils % (Manual) Lymphocytes % (Manual) Monocytes % (Manual) Neutrophils # (Manual) Total Absolute Neuts Lymphocytes # (Manual) Total Abs Lymphocytes Monocytes # (Manual) Toxic Granulation 1+ Dohle Bodies 1+ Echinocytes 1+ PT INR APTT PTT Ratio POC Sodium 128 L Sodium POC Potassium 3.9 Potassium POC Chloride 91 L Chloride Carbon Dioxide POC Total CO2 26 Anion Gap POC Anion Gap 17.0 POC BUN 18 BUN Creatinine POC Creatinine 0.7 Est Cr Clr Drug Dosing Est GFR ( Amer) Est GFR (Non-Af Amer) BUN/Creatinine Ratio Glucose POC Glucose (other) 105 H Calcium POC Ioniz Calcium Yasmin 1.02 L Total Bilirubin AST ALT Alkaline Phosphatase Troponin I Total Protein Albumin Globulin Albumin/Globulin Ratio Lipase Urine Color Dark Yellow Urine Appearance Clear Urine pH 6.0 Ur Specific [place] > 1.045 H Urine Protein 1+ H Urine Glucose (UA) Negative Urine Ketones Negative Urine Blood Negative Urine Nitrite Negative Urine Bilirubin Negative Urine Urobilinogen Negative Ur Leukocyte Esterase Negative Urine WBC (Auto) 1-5 Urine RBC (Auto) 0-4 U Hyaline Cast (Auto) 0 U Epithel Cells (Auto) 0-5 Urine Bacteria (Auto) Negative 10/05/19 10/05/19 07:23 07:23 WBC RBC Hgb POC Hgb Hct POC Hct MCV MCH MCHC RDW Std Deviation RDW Coeff of [place]est[place] Plt Count MPV Immature Gran % (Auto) Neut % (Auto) Lymph % (Auto) Maury % (Auto) Eos % (Auto) Baso % (Auto) Immature Gran # (Auto) Neut # (Auto) Lymph # (Auto) Maury # (Auto) Eos # (Auto) Baso # (Auto) Absolute Nucleated RBC Nucleated RBC % (auto) Neutrophils % (Manual) Lymphocytes % (Manual) Monocytes % (Manual) Neutrophils # (Manual) Total Absolute Neuts Lymphocytes # (Manual) Total Abs Lymphocytes Monocytes # (Manual) Toxic Granulation Dohle Bodies Echinocytes PT 15.0 H INR 1.4 H APTT 38.9 H PTT Ratio 1.4 POC Sodium Sodium 134 L POC Potassium Potassium 4.0 POC Chloride Chloride 99 Carbon Dioxide 26 POC Total CO2 Anion Gap 9.0 POC Anion Gap POC BUN BUN 20 H Creatinine 0.60 POC Creatinine Est Cr Clr Drug Dosing 122.4 Est GFR ( Amer) 126.7 Est GFR (Non-Af Amer) 109.3 BUN/Creatinine Ratio 33.9 H Glucose 88 POC Glucose (other) Calcium 8.2 L POC Ioniz Calcium Yasmin Total Bilirubin 1.7 H AST 48 H ALT 32 Alkaline Phosphatase 140 H Troponin I Total Protein 5.9 L Albumin 1.5 L Globulin 4.4 H Albumin/Globulin Ratio 0.3 L Lipase 133 Urine Color Urine Appearance Urine pH Ur Specific [place] Urine Protein Urine Glucose (UA) Urine Ketones Urine Blood Urine Nitrite Urine Bilirubin Urine Urobilinogen Ur Leukocyte Esterase Urine WBC (Auto) Urine RBC (Auto) U Hyaline Cast (Auto) U Epithel Cells (Auto) Urine Bacteria (Auto) Medications Administered Current Inpatient Medications Calcium Carbonate (Tums) 500 mg PO Q6 PRN PRN Reason: Indigestion Stop: 11/03/19 18:49 Hydromorphone HCl (Dilaudid) 1 mg IV Q3H PRN PRN Reason: Pain Stop: 10/18/19 17:23 Lactated Ringer's (Lr) 1,000 mls @ 80 mls/hr IV .[id number] [facility] Stop: 11/03/19 17:21 Last Admin: 10/05/19 06:11 Dose: 80 mls/hr Documented by: Metoprolol Tartrate (Lopressor) 50 mg PO BID [facility] Stop: 11/03/19 20:59 Last Admin: 10/05/19 07:59 Dose: 50 mg Documented by: Ondansetron HCl (Zofran) 4 mg IV Q6H PRN PRN Reason: Nausea Stop: 11/03/19 17:21 PG Care Time/CCT Total # of Minutes Spent Total Time Spent with Patient: Total time spent is greater than 50% in coordination of care (as documented) at patient's floor/unit and/or counseling patient: Coding Level of Care Code 10525 Subseq Hosp Care Lvl 3 Diagnoses Acute pancreatitis K85.80 Acute pancreatitis complication: unspecified Pancreatitis type: other Coagulopathy D68.9 Abdominal ascites R18.8 Ascites type: other type Pleural effusion J90 Acute dyspnea R06.00 Liver mass R16.0 (1) Acute pancreatitis Acute pancreatitis complication: unspecified Pancreatitis type: other Qualified Code(s): K85.80 - Other acute pancreatitis without necrosis or infection (2) Abdominal ascites Ascites type: other type Qualified Code(s): R18.8 - Other ascites
[2019-10-05] MEDS: HYDROmorphone INJ 1 MG/ML SYRINGE IV PRN ×3 (12:14→19:15)
[2019-10-05] MEDS ORDERED: METOPROLOL TARTRATE 50 MG TAB PO STA (14:19)
[2019-10-06] MEDS: HYDROmorphone INJ 1 MG/ML SYRINGE IV PRN ×3 (02:02→10:38)
[2019-10-06] MEDS ORDERED: FUROSEMIDE 20 MG in SYRINGE 0 ML IV ONE (02:37)
--- NOTE | 2019-10-06 03:28 | Hospitalist Progress Note ---
Date of Service October 06, 2019 Assessment & Plan Admission and Anticipated Discharge Date Admission Date: October 04, 2019 Subjective Called by nursing as patient became more tachypneic with increasing oxygen demand. Also reporting some chest discomfort. On exam he is afebrile, regular tachycardia, saturating 91% on 5L of O2 by NC, mildly tachypneic but no respiratory distress. Answering questions and speaking in complete sentences Heart - +S1/S2, regular, tachycardic Lungs - Markedly diminished breath sounds in bilateral bases, L > R to mid lung field, +crackles Abd - +BS, mildly distended and firm, nontender Ext - trace edema Labs, images and prior notes reviewed EKG with sinus tachycardia, no acute ischemic changes CXR with worsening bilateral pleural effusions, L > R, possible atelectasis and evidence of volume overload Assessment/Plan - 59yo C male admitted for pancreatitis with worsening respiratory status, SOB and increased oxygen requirement. Most likely secondary to volume overload, increasing pleural effusion and ascites -IVF placed on hold -Will give Lasix 20mg IV x 1 dose (patient is Lasix naive), will redose if needed -Continuous pulse oximetry -Repeat CXR in AM -PA and lateral at 0800. If no improvement with diuresis or clinical decline he may need thoracentesis Results & Data Results & Data ([facility]) Vital Signs (Past 12 Hours) Vital Signs Temp Pulse Pulse Resp BP Pulse Ox 10/06/19 02:50 91 10/06/19 02:15 106 H 25 H 91 10/06/19 02:11 89 L 10/06/19 02:08 36.8 C 110 H 25 H 127/84 85 L 10/05/19 22:48 36.7 C 108 H 16 142/95 H 90 10/05/19 19:10 36.7 C 109 H 16 136/89 90 10/05/19 17:54 115 H 10/05/19 15:44 36.6 C 114 H 20 131/85 92
--- NOTE | 2019-10-06 07:05 | XRay Report ---
XR chest 1V portable CLINICAL HISTORY: Shortness of breath. COMPARISON STUDY: Chest CT October 04, 2019. FINDINGS: Lung volumes are diminished. There is no pneumothorax. Moderate left and small right pleura l effusions are noted. Biliary stent is in place. There is pulmonary vascular congestion without over t pulmonary edema. Bibasilar opacities persist. IMPRESSION: 1. Moderate left and small right pleural effusions with bibasilar opacities that may reflect atelecta sis or consolidation. 2. Low lung volumes. ACT 112: Negative or not required by law. Electronically signed by: Derek Lindsay M.D. 10/06/2019 7:04 AM
[2019-10-06] MEDS: METOPROLOL TARTRATE 50 MG TAB PO SCH ×2 (07:32→13:32)
[2019-10-06 07:56] LABS: Hematocrit (blood only) 30.5 % (42-52); Hemoglobin 9.5 g/dL (14.0-18.0); Mean Corpuscular Hemoglobin 28.9 pg (25-34); Mean Corpuscular Volume 92.7 fL (80-100); Mean Platelet Volume 10.3 fL (7.4-10.4); Nucleated RBC # (auto) 0.18 K/uL (0-0); Platelet Count 377 K/uL (130-400); RDW Coefficient of Variation 17.3 % (11.5-14.5); RDW Standard Deviation 56.4 fL (36.4-46.3); Red Blood Count 3.29 M/uL (4.7-6.1); White Blood Count 17.48 K/uL (4.8-10.8)
[2019-10-06] MEDS ORDERED: BUMETANIDE 1 MG in SYRINGE 0 ML IV ONE (08:00)
[2019-10-06 08:01] LABS: Mean Corpuscular Hgb Conc 31.1 g/dL (32-36)
[2019-10-06 08:08] LABS: INR 1.5 (0.9-1.1); Partial Thromboplastin Ratio 1.3; Partial Thromboplastin Time 35.2 Seconds (21.0-31.0); Prothrombin Time 15.4 Seconds (9.0-12.0)
[2019-10-06 08:18] LABS: Albumin Globulin Ratio 0.3 (0.9-2); Albumin Level 1.5 gm/dl (3.4-5.0); BUN Creatinine Ratio 38.4 (10-20); Bilirubin,Total 1.8 mg/dl (0.2-1); Calcium 8.1 mg/dl (8.5-10.1); Creatinine Clr Calc Pharmacy 78.1 ml/min; Est GFR (African American) 101.7; Est GFR (Non-African American) 87.8; Globulin 4.7 gm/dl (2.5-4.0); Potassium 4.6 mmol/L (3.5-5.1); Total Protein 6.2 gm/dl (6.4-8.2)
[2019-10-06] MEDS ORDERED: VANCOMYCIN CONSULT ACTIVE PRN (08:19)
[2019-10-06] MEDS ORDERED: PIPERACILL/TAZOBAC CONSULT ACTIVE PRN (08:19)
[2019-10-06 08:20] LABS: ALC (manual) 0.75 K/uL (1.2-3.4); ANC (manual) 15.82 K/uL (1.4-6.5); Dohle Bodies 2+; Lymphocytes # (manual) 0.75 K/uL (1.2-3.4); Lymphocytes % (manual) 4.3 %; Monocytes # (manual) 0.75 K/uL (0.11-0.59); Monocytes % (manual) 4.3 %; Myelocytes # (manual) 0.16 K/uL (0-0); Myelocytes % (manual) 0.9 %; Neutrophils # (manual) 15.82 K/uL (1.4-6.5); Neutrophils % (manual) 90.5 %; Polychromasia 1+; Toxic Granulation 1+
[2019-10-06] MEDS ORDERED: PIPERACILLIN/TAZOBACTAM 4.5 GM in DEXTROSE 5% 100 ML IV ONE (08:30)
--- NOTE | 2019-10-06 08:36 | XRay Report ---
XR chest 1V portable CLINICAL HISTORY: hypoxia COMPARISON STUDY: Chest CT October 04, 2019. Chest radiograph October 06, 2019 2:44 AM. FINDINGS: Lung volumes are diminished. There is no pneumothorax. Moderate left and small right pleura l effusions are noted. Persistent bibasilar opacity, greater on the left, are again noted with left l ower lobe air bronchograms. There is pulmonary vascular congestion without overt pulmonary edema. Car diomediastinal silhouette is stable. Common bile duct stent is noted. IMPRESSION: 1. No significant change in appearance of the chest. Moderate left and small right pleural effusions with bibasilar opacities which may reflect atelectasis or consolidation. 2. Pulmonary vascular congestion. ACT 112: Negative or not required by law. Electronically signed by: Derek Lindsay M.D. 10/06/2019 8:35 AM
[2019-10-06] MEDS ORDERED: VANCOMYCIN HCL 2,000 MG in SODIUM CHLORIDE 0.9% 500 ML IV ONE (08:45)
[2019-10-06] MEDS ORDERED: PIPERACILLIN/TAZOBACTAM 3.375 GM in DEXTROSE 5% 100 ML IV ONE (08:45)
[2019-10-06 09:05] LABS: Base Excess ABG 1.5 mEq/L (-9-1.8); HCO3 ABG 25 mmol/L (19-24); Oxygen Saturation ABG 90.1 % (90-95); PCO2 ABG 36 mmHg (35-46); PO2 ABG 62 mmHg (80-95); pH ABG 7.46 (7.35-7.45)
[2019-10-06 09:06] LABS: Allen Test Pos (Pos)
--- NOTE | 2019-10-06 10:13 | Electrocardiogram Report ---
Test Reason : Blood Pressure : / mmHG Vent. Rate : 107 BPM Atrial Rate : 107 BPM P-R Int : 146 ms QRS Dur : 076 ms QT Int : 316 ms P-R-T Axes : 021 018 001 degrees QTc Int : 421 ms Sinus tachycardia Cannot rule out Anterior infarct , age undetermined Abnormal ECG When compared with ECG of 04-OCT-2019 12:55, No significant change was found Confirmed by Luis Peng ([id number]) on 10/06/2019 10:13:11 AM Referred By: REFERRED SELF Confirmed By:Luis Peng
[2019-10-06] MEDS ORDERED: RASPBERRY SYRUP 5 ML UDP PO SCH (12:00)
[2019-10-06] MEDS ORDERED: VANCOMYCIN HCL 250 MG/5 ML SOLN PO SCH (12:00)
--- NOTE | 2019-10-06 12:19 | Pulmonary Consultation ---
Date of Consultation October 06, 2019 Assessment & Plan (1) Hypoxia: Impression: 59-year-old male with history of biliary obstruction status post ERCP and stent placement presenting now with abdominal pain. He has evidence of what appears to be a pancreatic pseudocyst versus phlegmon with associated ascites and increasing pleural effusions with shortness of breath. Recommendations: 1. Recommend the patient undergo ultrasound-guided catheter thoracentesis. Procedure was discussed in detail with the patient and with his sister. Questions were answered to the best my ability. They are agreeable to proceed. Will send fluid for microbiologic as well as cytologic analysis. The effusion certainly could be secondary to fluid crossing the diaphragm. Sympathetic effusions related to ERCP or also possible. Spontaneous bacterial pleuritis would also be in the differential. 2. Hypoxemia: Suspect this is related to VQ mismatch with shunt physiology due to compressive atelectasis as well as low lung volumes due to the patient's intra-abdominal process. 3. Patient has evidence of ascites and what appears to be a peripancreatic fluid collection. Consideration for CT-guided fine-needle aspirate of the fluid collection may be appropriate. He is already on antibiotics. Percutaneous decompression via endoscopy/G-tube would also be a consideration if the cyst is felt to be mature. Will defer to GI and the hospitalist service. Patient is currently on Zosyn which should be adequate for intra-abdominal etiologies. Patient is at risk for clinical deterioration and consideration for transfer to a higher level of care may be appropriate. We will follow-up with imaging postthoracentesis and with pleural fluid studies. (2) Pleural effusion: (3) Pancreatic pseudocyst: History of Present Illness Attending Physician: Braydon Bush, History of Present Illness Asked by Dr. Bush to evaluate this patient with hypoxemic respiratory failure and bilateral pleural effusions. History is that hospitalist as well as review the electronic medical record and interview the patient and his sister at the bedside. Sister was interviewed via phone. Patient is a 59-year-old male with a past medical history of hypertension who developed signs and symptoms for biliary obstruction and there was concern for cholangiocarcinoma. He underwent ERCP with stenting of the biliary systems and brushings on September 13, 2019. He had evidence of post ERCP pancreatitis. He was readmitted to [facility] and then transferred to [facility]. He was treated for pancreatitis and improved over time. He was also treated for C. difficile colitis. He was discharged home on September 26. 2 days prior to admission he developed increasing epigastric and bilateral upper quadrant abdominal pain. This prompted return to the emergency room. He was admitted with a diagnosis of pancreatitis although his lipase have been normal. Repeat imaging was performed. He was supported with antibiotics. Of note his CT scan did show significant air within the biliary tree. Last night he developed increasing shortness of breath and an oxygen requirement. CT angiogram showed no evidence of PE and some compressive atelectasis of the bilateral lower lobes with small bilateral pleural effusions. Chest x-ray performed today demonstrated increasing airspace opacity at the bases consistent with enlarging effusions and pulmonary was consulted. The patient does not report significant fevers chills or night sweats. He has no prior history of alcoholic cirrhosis. Allergies Allergy/AdvReac Type Severity Reaction Status Date / Time No Known Allergies Allergy Unverified 10/04/19 13:44 Home Medications Home Medications Medication Instructions Recorded Confirmed Type metoprolol tartrate 50 mg tablet 50 mg PO BID #60 tab 10/02/19 10/04/19 Rx acetaminophen [Tylenol Extra 0 mg PO Q6H PRN 10/04/19 10/04/19 History Strength] atorvastatin 40 mg PO QAM 10/04/19 10/04/19 History potassium chloride 10 meq PO QAM 10/04/19 10/04/19 History Patient History Medical History Carpal tunnel syndrome on both sides Dyslipidemia (Chronic) Hip pain Hypertension (Chronic) Impaired fasting glucose (Chronic) Liver mass Surgical History [place] teeth removed Family History Father Lung cancer Denies family history of Ovarian cancer Prostate cancer Breast cancer Colorectal cancer Social History Preferred Language: Icelandic Communication Ability: Effective Visual Impairment: No Limitations Hearing Ability: Normal Metal Die Finisher Required: No Beliefs That Will Affect Care: None marital status: Single Current Living Situation: Alone current occupational status: employed 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 No additions or deletions Physical Exam Constitutional: well developed and + malnourished; no acute distress Eyes: PERRL, conjunctivae normal, anicteric sclerae ENMT: external ear and nose normal, oropharynx normal Neck: trachea midline, no thyromegaly Respiratory: + labored breathing (intermittently, can talk in complete sentences) Auscultation: + breath sounds absent (in bases bilaterally); no rales, no rhonchi and no wheezes Cardiovascular: Rate/Rhythm: regular rhythm and + tachycardic Heart Sounds: normal S1 and normal S2; no murmur Extremities: normal capillary refill; no edema Gastrointestinal (Abdomen): Inspection/Auscultation: + abdomen distended and normal bowel sounds Percussion/Palpation: + abdomen tender (epigastric, LUQ) and + ascites; no guarding and abdomen not rigid Musculoskeletal: no cyanosis or clubbing, extremities motor strength 5/5 Skin: no rashes, warm and dry Neurologic: patellar DTR's 2+ bilat, sensation intact and PERRL, EOMI, accommodation nl, no face palsy, no dysarthria Psychiatric: A+Ox3, euthymic affect Lymphatic: no cervical or axillary lymphadenopathy Results & Data Results & Data ([facility]) Vital Signs (Past 12 Hours) Vital Signs Temp Pulse Pulse Resp BP Pulse Ox 10/06/19 11:29 36.7 C 122 H 19 134/81 10/06/19 09:29 90 10/06/19 07:49 89 L 10/06/19 07:45 90 10/06/19 07:44 89 L 10/06/19 07:35 37.1 C 110 H 19 146/94 H 90 10/06/19 07:14 109 H 10/06/19 03:49 36.7 C 109 H 20 125/88 92 10/06/19 02:50 91 10/06/19 02:15 106 H 25 H 91 10/06/19 02:11 89 L 10/06/19 02:08 36.8 C 110 H 25 H 127/84 85 L Laboratory Results 10/06/19 07:49 10/06/19 07:49 Diagnostic Findings Chest x-ray from today was independently reviewed. There is increasing basilar consolidations left greater than right. Lung volumes are low. CT angiogram 10/04/2019: Small bilateral pleural effusions. There is gas within the biliary tree. CT of the abdomen from 10/04/2019 showed a large peripancreatic fluid collection with abdominal stranding. Mild to moderate ascites was also noted PG Care Time/CCT Total # of Minutes Spent Total Time Spent with Patient: Total time spent is greater than 50% in coordin ation of care (as documented) at patient's floor/unit and/or counseling patient: Coding Level of Care Code 98777 Inpt Consult Level 4 Diagnoses Hypoxia R09.02 Pleural effusion J90 Pancreatic pseudocyst K86.3
--- NOTE | 2019-10-06 12:22 | Procedure Note ---
Procedure Note Date of Service October 06, 2019 Procedure: Diagnostic therapeutic ultrasound-guided catheter thoracentesis Seasonal Retail Merchandiser: Dr. Rojelio Acosta Indication: Pleural effusion Consent: Signed by patient and verified with timeout prior to procedure Anesthesia: 8 mL's 1% lidocaine without epinephrine local. Procedure: Consent was verified and timeout performed. Appropriate imaging studies were reviewed prior to the procedure. Patient was placed in a seated position and limited thoracic ultrasound was performed of the bilateral chest. See separate imaging. A small right pleural effusion was identified with a small to moderate sized left pleural effusion. Site appropriate for thoracentesis was selected. The skin was prepped and draped in normal sterile fashion. Lidocaine was used for local analgesia. Fluid was aspirated via the finder needle. A small skin anabell was made with the scalpel and the catheter over the needle apparatus was advanced over the rib into the pleural space. Using the syringe one-way valve system, a total of mL's of 600 mL of cloudy brown fluid was removed. Procedure was terminated due to inability to withdraw any additional fluid. The catheter was removed and observed to be intact. A sterile dressing was applied. Post procedure chest x-ray was ordered. Post procedure ultrasound demonstrated persistent lung sliding. Fluid was sent for cell count differential, culture, Gram stain, cytology, LDH, glucose, total protein, and pH. The patient tolerated the procedure well without obvious complication Coding CPT Codes Pulmonary/Thoracic - Pulmonary and Thoracic: 37680 Thoracentesis w imaging ([id number]) [facility] [place] Codes (Charges) Pulmonary/Thoracic Procedure 1: Pulmonary and Thoracic: 96317 Thoracentesis w imaging
[2019-10-06 12:26] LABS: Glucose Pleural Fluid 59 mg/dl
--- NOTE | 2019-10-06 12:37 | XRay Report ---
XR chest 1V portable CLINICAL HISTORY: S/P Thoracentesis COMPARISON STUDY: Chest radiograph October 06, 2019 at 8:15 AM. FINDINGS: No pneumothorax identified. Left pleural effusion has decreased in size with small residual pleural effusion. A right pleural effusion is noted. Bibasilar opacities are again noted. Left lower lung aeration has improved. Cardiomediastinal silhouette is stable. There is no evidence for pulmona ry edema. IMPRESSION: 1. No pneumothorax following thoracentesis. 2. Interval decrease in size of a left pleural effusion. Small bilateral pleural effusions with bibas ilar opacities. ACT 112: Negative or not required by law. Electronically signed by: Derek Lindsay M.D. 10/06/2019 12:36 PM
[2019-10-06 12:44] LABS: LDH Pleural Fluid 2203 U/L; Total Protein Pleural Fluid 3.1 g/dl
[2019-10-06 13:09] LABS: Appearance Pleural Fluid HAZY; Basophils, Fluid 0 %; Color Pleural Fluid AMBER; Eosinophils, Fluid 0 %; Lymphocytes, Fluid 4 %; Mono,Macrophage,Mesothelial 10 %; Neutrophils, Fluid 86 %; RBC Pleural Fluid (A) 6000 /uL; Source Pleural Fluid LEFT LUNG; WBC Pleural Fluid (A) 9223 /uL
--- NOTE | 2019-10-06 13:30 | Discharge Summary ---
Date of Service October 06, 2019 Admission HPI Per Admitting Provider 59 yo male who was relatively healthy with just a history of hypertension up until a few weeks ago. He developed signs and symptoms of biliary obstruction and there were concerns on imaging for a tumor of the biliary system such as a cholangiocarcinoma. He was transferred to [facility] and had ERCP with stents in the biliary system and brushings taken for biopsy, this was on 09/13/19. He returned to [facility] after having the procedure due to complaints of severe abdominal pain. He was found to have evidence of pancreatitis as a result of the ERCP. He could not be transferred to [place] at that time due to lack of beds and he was transferred to [facility] instead. From their discharge summary he was treated for pancreatitis and by all accounts he improved over the course of a few weeks. He was also found to have C diff colitis and was treated appropriately and improved. He was discharged to home on 09/26 and he says that at that time he was eating, had little to no abdominal pain, no jaundice, no f genoveva. He received some Lasix while still hospitalized due to volume overload with treatment of the pancreatitis. He diureses well, was breathing better, could ambulate in his room without oxygen. He had a follow up with Dr. Alejo over the phone on 10/02/19 and at that time he was still doing reasonably well. Over the past two days he started to have increasing epigastric, LUQ and RUQ pain, but most predominant on the left side. He does not have an appetite. No nausea or vomiting and he has moved his bowels. He is trying to drink fluids, had about 60oz of fluids yesterday. He admits that he is making less urine. In the ED his CT shows signs of pancreatitis, no evidence of necrosis, no pseudocyst formation. His lipase is 82. LFT are minimally elevated. Interestingly, his PT and PTT are elevated without any anticoagulation, this is a new finding compared to prior lab results. His WBC is 12k but it was 16k when he was discharged on 09/26 and it was as high as 30k when he was last at this hospital. BUN and Cr are at baseline. CT of the chest shows that his lungs are clear, he does have moderate to large bilateral pleural effusions that have been described on prior exams. He admits that he feels short of breath but not in any distress. I discussed the case with Sona THOMAS prior to admission, will keep him NPO, give gentle fluids, try to reverse INR and PTT. He is supposed to have a biopsy of a possible left liver lobe lesion in November 2019 at [facility]. Principal Diagnosis Sepsis, possible infected pancreatic pseudocyst or phlegmon Discharge Exam Constitutional well developed, + in distress (mild) and + malnourished Eyes PERRL, conjunctivae normal, anicteric sclerae ENMT external ear and nose normal, oropharynx normal Neck trachea midline, no thyromegaly Respiratory + labored breathing (intermittently, can talk in complete sentences) Auscultation: + breath sounds absent (in bases bilaterally); no rales, no rhonchi and no wheezes Cardiovascular Rate/Rhythm: regular rhythm and + tachycardic Heart Sounds: normal S1 and normal S2; no murmur Extremities: normal capillary refill; no edema Gastrointestinal (Abdomen) Inspection/Auscultation: + abdomen distended and normal bowel sounds Percussion/Palpation: + abdomen tender (epigastric, LUQ) and + ascites; no guarding and abdomen not rigid Musculoskeletal no cyanosis or clubbing, extremities motor strength 5/5 Skin no rashes, warm and dry Neurologic patellar DTR's 2+ bilat, sensation intact and PERRL, EOMI, accommodation nl, no face palsy, no dysarthria Psychiatric A+Ox3, euthymic affect Lymphatic no cervical or axillary lymphadenopathy Discharge Data Allergies Allergy/AdvReac Type Severity Reaction Status Date / Time No Known Allergies Allergy Unverified 10/04/19 13:44 Consultations 10/04/19 14:46 ED Decision to Admit Stat 10/04/19 17:22 Consult Gastroenterology Routine 10/06/19 08:35 Consult Pulmonology Routine 10/06/19 13:27 Burn CD for patient Stat Ordered Studies 10/04/19 12:40 CT abd pelvis IV con only Stat CT angio chest PE protocol Stat 10/06/19 11:19 US point of care ultrasound Stat Hospital Course (1) Sepsis: due to suspected phlegmon or peripancreatic fluid that is infected WBC going up to 18k despite Zosyn no fever, tachycardic, blood pressure is still preserved had thoracentesis on 10/05 for 600mL out on the left side has 9k WBC with >80% neutrophils, LDH high at 2000 in the fluid latanya, hazy color, concerning for infected pleural fluid will transfer to [facility] for source control, evaluate for IR drainage of peripancreatic fluid collections (2) Pancreatic pseudocyst: suspected, no clear pseudocyst on CT on 10/02 but may in fact have infected pseudocyst had post ERCP pancreatitis on 09/14, was discharged from [facility] on 09/26 (3) Acute pancreatitis: evidence of pancreatitis on CT and epigastric pain, no nausea has been NPO since admission, just sips of water and medications lipase normal three days in a row, less inclined to think he has pancreatitis, just infected peripancreatic fluid collections (4) Coagulopathy: unclear etiology platelets and Hb are stable, no signs of bleeding could be lack of absorption of fat soluble vitamins? he admits that for the past two weeks whatever he eats "goes right through him" responded well to Vitamin K 5mg IV, INR down to 1.5 from 3.4, PTT down slightly to 35 today recommend monitoring daily (5) Abdominal ascites: certainly this is most likely due to recent pancreatitis suggest IR drainage if possible at [facility] (6) Pleural effusion: s/p thoracentesis on 10/05 for 600mL hazy, latanya fluid, 9k WBC with > 80% neutrophils LDH > 2000 on Zosyn given a dose of Vancomycin initially, MRSA swab negative (7) Acute dyspnea: due to pleural effusions and compressive atelectasis worsening hypoxic respiratory failure today labored breathing, placed on 10L via mask ABG showed PaO2 of 60, confirmed oxygen saturation of 90% after thoracentesis for 600mL his breathing is improved, down to 6L via nasal canula much less distress, talking easier (8) Liver mass: initially had a CT abdomen on 09/09/19 that showed a soft tissue mass at the liver hilum causing dilation of the intrahepatic biliary ducts, some atrophy of the left lobe of the liver was noted thought to be a [place] tumor had ERCP at 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 Acosta, discussed with GI and ICU staff at [facility] over the phone) and Other (several discussions with patient's sister Angela over the phone) Discharge Plan Discharge Items Patient Disposition: Transfer Acute Care Hospital Reason For Visit: RECURRENT PANCREATITIS Discharge Diagnosis: Pancreatitis with worsening peripancreatic fluid collections possible phlegmon, infected pseudocyst? 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 Call non-emergency contact if: your symptoms worsen Follow-up/Referrals: Rickie Alejo MD [Primary Care Provider] - Diet: Nothing by Mouth Addtl Attending Provider Instructions: Current inpatient medications: - DILAUDID 1mg IV q3 PRN - ZOSYN IV - METOPROLOL 50MG TID Patient with worsening condition, concerns for infected pancreatic phlegmon or pseudocyst, possible infect pleural effusion worsening hypoxic respiratory failure needs transferred for IR drainage, critical care, tertiary GI services Pending Studies at Discharge: Yes Studies:: pleural fluid culture Stand-Alone Forms: My [facility] Skilled Items Patient informed of condition?: Yes DNR: No Discharge Level of Care: Other Communicable Disease: No Discharge Prognosis: Deteriorating Lines: Peripheral IV Urinary Catheter: No Medications and DC Order Prescriptions: Continued metoprolol tartrate 50 mg tablet 50 mg PO BID Qty: 60 RF: 2 acetaminophen [Tylenol Extra Strength] 500 mg Tablet 0 mg PO Q6H PRN (Reason: Pain) RF: 0 atorvastatin 40 mg tablet 40 mg PO QAM RF: 0 potassium chloride 10 mEq tablet extended release 10 meq PO QAM RF: 0 Discharge Orders: Discharge Order (Routine); Ordered 10/06/19 Ordered By: Braydon Bush Admission Data Admit Date/Time: 10/04/19 16:18 Attending Provider: Braydon Bush Admit Provider: Braydon Bush Primary Care Provider: Rickie Alejo Other Providers: Braydon Bush ; Macarena Dickey ; Rojelio Acosta Other Interventions: Discharge Summary Assessment (RN) Last Done: 10/06/19 13:41 Coding Level of Care Code D/C Day Management >30 mins Diagnoses Sepsis A41.9 Pancreatic pseudocyst K86.3 Acute pancreatitis K85.80 Acute pancreatitis complication: unspecified Pancreatitis type: other Coagulopathy D68.9 Abdominal ascites R18.8 Ascites type: other type Pleural effusion J90 Acute dyspnea R06.00 Liver mass R16.0
[2019-10-06] MEDS ORDERED: PIPERACILLIN/TAZOBACTAM 3.375 GM in DEXTROSE 5% 100 ML IV SCH (14:00)
== END 2019-10-06 14:38 | disposition short-term general hospital (02) | DRG 871 ==
LOC: ED 12:16 → 2W 16:18